=== PATIENT | male | born 1975 | race Caucasian/White ===

== ENCOUNTER 2019-11-07 08:41 | Inpatient (IN) ==
--- OUTSIDE RECORDS SUMMARY | 2019-11-07 08:45 | External Medical Summary | Continuity of Care Document ---
:1975 Author Name Parag Carter Address Unavailable Unavailable , Care Team Providers Name Role Phone NonMNPG M.D. Unavailable [email or web address], [email or web address] Unavailable Unavailable Problems Active medical history not documented Allergies and Adverse Reactions Allergy history not documented Medications Medications not documented Procedures Procedures not documented Immunizations Immunizations not documented Plan of Treatment Planned Observations Planned Goals not documented Results No Known Results Results not documented
[2019-11-07] MEDS ORDERED: SODIUM CHLORIDE 0.9% 1000ML 1,000 ML IV ONE ×2 (08:47→08:53)
[2019-11-07 09:22] LABS: INR 1.3 (0.9-1.1); Partial Thromboplastin Ratio 1.1; Partial Thromboplastin Time 29.6 Seconds (21.0-31.0)
[2019-11-07] MEDS ORDERED: PANTOprazole 80 MG in DEXTROSE 5% 100 ML IV ONE (09:22)
[2019-11-07] MEDS ORDERED: SODIUM CHLORIDE 0.9% 250 ML IV PRN (09:22)
[2019-11-07 09:23] LABS: Base Excess VBG -8.7 mEq/L; HCO3 VBG 16 mmol/L; PCO2 VBG 28 mmHg (38-50); PO2 VBG 36 mmHg; pH VBG 7.37 (7.36-7.41)
[2019-11-07 09:27] LABS: Oxygen Saturation VBG < 60.0 %
[2019-11-07 09:28] LABS: Alanine Aminotransferase 20 U/L (12-78); Albumin Level 1.5 gm/dl (3.4-5.0); Aspartate Aminotransferase 44 U/L (15-37); BUN Creatinine Ratio 14.1 (10-20); Blood Urea Nitrogen 22 mg/dl (7-18); Calcium 7.1 mg/dl (8.5-10.1); Carbon Dioxide 16 mmol/L (21-32); Chloride 106 mmol/L (98-107); Est GFR (African American) 61.8; Est GFR (Non-African American) 53.3; Glucose 83 mg/dl (70-99); Lipase 93 U/L (73-393); Magnesium 1.8 mg/dl (1.8-2.4); Potassium 3.1 mmol/L (3.5-5.1); Sodium 136 mmol/L (136-145)
--- NOTE | 2019-11-07 09:28 | XRay Report ---
XR chest 1V portable CLINICAL HISTORY: SEPSIS COMPARISON STUDY: 01/14/2016 FINDINGS: The cardiac and mediastinal contours are normal. There is no evidence of focal pulmonary co nsolidation. There is no evidence of failure. No pleural effusions are visualized.[A vague left apica l opacity, likely represents a vascular summation. IMPRESSION: No active disease in the chest. ACT 112: Negative or not required by law. Electronically signed by: Romulo Cleary M.D. 11/07/2019 9:26 AM
[2019-11-07 09:30] LABS: Hematocrit (blood only) 23.2 % (42-52); Hemoglobin 7.8 g/dL (14.0-18.0); Mean Corpuscular Hemoglobin 34.2 pg (25-34); Mean Corpuscular Hgb Conc 33.6 g/dL (32-36); Mean Corpuscular Volume 101.8 fL (80-100); Mean Platelet Volume 13.4 fL (7.4-10.4); Nucleated RBC # (auto) 0.06 K/uL (0-0); Nucleated RBC % (auto) 0.5 %; Platelet Count 74 K/uL (130-400); RDW Coefficient of Variation 15.5 % (11.5-14.5); RDW Standard Deviation 56.4 fL (36.4-46.3); Red Blood Count 2.28 M/uL (4.7-6.1); White Blood Count 11.69 K/uL (4.8-10.8)
[2019-11-07 09:31] LABS: Basophils # (auto) 0.02 K/uL (0-0.2); Basophils % (auto) 0.2 %; Immature Granulocytes # (auto) 0.08 K/uL (0.00-0.02); Immature Granulocytes % (auto) 0.7 %; Lymphocytes # (auto) 0.41 K/uL (1.2-3.4); Lymphocytes % (auto) 3.5 %; Monocytes # (auto) 0.95 K/uL (0.11-0.59); Monocytes % (auto) 8.1 %; Neutrophils # (auto) 10.23 K/uL (1.4-6.5); Neutrophils % (auto) 87.5 %; Platelet Estimate Decreased (Normal)
[2019-11-07] MEDS ORDERED: OCTREOTIDE ACETATE 50 MCG in SYRINGE 9.5 ML IV STA (09:31)
[2019-11-07] MEDS ORDERED: SODIUM CHLORIDE 0.9% 1000ML 1,000 ML IV SCH (09:33)
[2019-11-07 09:43] LABS: Albumin Globulin Ratio 0.5 (0.9-2); Alkaline Phosphatase 49 U/L (45-117); Bilirubin,Total 1.6 mg/dl (0.2-1); Creatine Kinase 522 U/L (39-308); Globulin 2.9 gm/dl (2.5-4.0); Total Protein 4.4 gm/dl (6.4-8.2); Troponin I 0.224 ng/ml (0-0.045)
[2019-11-07] MEDS ORDERED: PIPERACILLIN/TAZOBACTAM 4.5 GM/120 ML BAG IV ONE (09:44)
[2019-11-07] MEDS ORDERED: PIPERACILL/TAZOBAC CONSULT ACTIVE PRN (09:44)
--- NOTE | 2019-11-07 09:47 | Emergency Department Note ---
History of Present Illness General Chief complaint: Abdominal Pain Time Seen by Provider: 11/07/19 08:47 History of Present Illness Provider complaint: Vomiting Onset (ago): day(s) 2 Location: abdomen Maximum Pain Intensity: 5 44-year-old male presents emergency department via EMS for nausea and vomiting. Per EMS the patient reports he has been nausea and vomiting for last 2 days. He states he has been unable to keep anything down for the last 2 days. The patient has a history of alcohol abuse. The patient does report he was vomiting blood yesterday. He also reports dark black stools and blood in his urine. Per EMS, the patient is a chronic alcoholic. They state that the patient lives at home in an apartment with 2 other men. They state that the apartment was extremely dirty and unkept littered with mountains of empty beer cans and all cigarette box. Per EMS, the friends reported that the patient drinks half a case of beer a day but has not had any beer in the last 2 days. Patient denies any intravenous drug abuse and denies any history of HIV. Home Medications Home Medications Medication Instructions Recorded Confirmed Type hevbfkr-teirfgitjcitv-hqlrvasq 1 tab PO Q6H PRN 11/07/19 11/07/19 History [Excedrin Extra Strength] ibuprofen [Advil] 400 mg PO Q6H PRN 11/07/19 11/07/19 History Allergies Allergy/AdvReac Type Severity Reaction Status Date / Time Unable to Assess Allergy Unverified 11/07/19 10:11 Past Med/Surg History Medical History Alcohol use disorder Bipolar disorder Cachexia Hypokalemia Severe protein-energy malnutrition Status post admission to intensive care unit Tobacco use disorder Surgical History History of colonoscopy History of esophagogastroduodenoscopy (EGD) Family History Other Diabetes Social History Preferred Language: Spanish Communication Ability: Effective Sheet Cutting Operator Required: No Beliefs That Will Affect Care: None Current Living Situation: Other Current Living Situation Comment: lives in apartment with roommates Feels Safe at Home: Yes Smoking Status: Current every day smoker Tobacco Type: cigarettes ; Cigarettes Per Day: 2-4 packs daily ; Second Hand Exposure: Yes ; Hx Alcohol Use: Yes (15 beers daily ) Alcohol type: beer Alcohol Intake Frequency: Daily Hx Substance Use: Yes Substance Use Type Other:: SNORTED COCAINE IN 2017 Review of Systems A total of 10 systems reviewed and were otherwise negative Physical Exam Vital Signs Vital Signs - 24 hr 11/07/19 08:45 11/07/19 08:47 11/07/19 09:00 Temperature Source Rectal Pulse Rate 103 H 95 H Pulse Rate from SpO2 Sensor 99 H Respiratory Rate 12 31 H Respiratory Effort / Characteristics Non-Labored Respiratory Depth Normal Blood Pressure 78/55 L 76/53 L Blood Pressure Mean 62 56 Blood Pressure Position Lying Pulse Oximetry 99 Oxygen Delivery Method Room Air Room Air Sepsis Recent Fever Within 48 Hours No Sepsis Action Taken by Nursing No Action Required 11/07/19 09:02 11/07/19 09:10 11/07/19 09:15 Temperature Source Pulse Rate 98 H 94 H 96 H Pulse Rate from SpO2 Sensor 99 H Respiratory Rate 29 H 28 H 31 H Respiratory Effort / Characteristics Respiratory Depth Blood Pressure 88/55 L 84/58 L Blood Pressure Mean 58 69 Blood Pressure Position Pulse Oximetry Oxygen Delivery Method Sepsis Recent Fever Within 48 Hours Sepsis Action Taken by Nursing 11/07/19 09:30 11/07/19 09:31 11/07/19 09:45 Temperature Source Pulse Rate 98 H 95 H 91 H Pulse Rate from SpO2 Sensor 93 H Respiratory Rate 31 H 33 H 27 H Respiratory Effort / Characteristics Respiratory Depth Blood Pressure 77/51 L 78/52 L Blood Pressure Mean 59 60 Blood Pressure Position Pulse Oximetry 100 Oxygen Delivery Method Sepsis Recent Fever Within 48 Hours Sepsis Action Taken by Nursing Physical Exam GENERAL: Extremely distressed, cachectic. Ill-appearing. HENT: Exam performed. - Mouth/Throat: Extremely dry mucous membranes. Black coffee ground like material in his mouth. EYES: Conjunctivae and EOM are normal. Pupils are equal, round, and reactive to light. Right eye exhibits no discharge. Left eye exhibits no discharge. No scleral icterus. NECK: Supple CV: Tachycardic rate, regular rhythm, normal heart sounds and intact distal pulses. There is no peripheral edema. Palpable radial pulses bue. PULM/CHEST: Effort normal and breath sounds normal. No respiratory distress. No stridor. He has no wheezes. He has no rales. ABD: The abdomen is soft. Diffuse pain on palpation of the abdomen. No ascites or fluid wave. MUSC/SKEL: Normal range of motion. There is no peripheral edema, tenderness or deformity. Rectal: Hemoccult positive NEURO: He is alert and oriented to person, place, and time. Motor and sensation grossly intact. Procedures Central Line Placement Right Femoral: Time Out Performed: Yes Patient Placed on Monitor/Pulse Ox: Yes MD Prep: mask, gown and gloves Central Line Prep: Chlorhexidine scrub Local Anesthetic: lidocaine 1% Amount of anesthesia used (mL): 3 Central Line Lumen Inserted: triple Post Procedure: sutured in place, good blood return, all ports aspirated, flushed, capped and sterile dressing applied Patient Tolerated Procedure: well Complications: none FAST Exam FAST Exam 1: Fluid in Morison's pouch: No Fluid in Splenorenal Junction: No Fluid around bladder, Transverse view: No Fluid around bladder, Sagittal view: No Fluid in Pericardial Sac: No Gross Wall Motion Abnormality: No Study normal for this patient: Yes Images saved for further review: Yes Additional Comments: Saldivar exam was performed. No pneumothorax bilaterally. No AAA. IVC was plethoric status post 3 L of normal saline bolus. Course Course 0845: The patient was evaluated in room C9. A complete history and physical exam was performed. Patient was placed on gas pipe layer and continuous pulse ox. Patient was found to be tachycardic and hypotensive. Sepsis order set was initiated. 2 L normal saline fluid bolus was ordered. Cardiac monitoring: An order was placed for continuous cardiac monitoring. The monitor shows a rate of 110 with sinus tachycardia rhythm 0947: Patient remains hypotensive status post 2 L normal saline bolus. Nursing staff was unsuccessfully able to pass a Graham catheter on the patient. Patient will be given 3rd L of normal saline. Rectal temperature shows that the patient is hypothermic. Sabine hugger started for the patient. Patient's hemoglobin is low at 7.8. Will start the patient on Protonix given his Hemoccult positive. Given the patient's long history of alcoholism and reported of vomiting blood at home, the patient also be given octreotide bolus and drip for possible esophageal varices. The patient has not had any vomiting or nausea in the emergency department. Patient's lactic acid is elevated above 7. It is unclear if this is due to the patient being septic or due to his profound hypotension from possible GI bleed. 2 units packed red blood cells ordered for the patient. Discussed w/ ICU attending Marisa who is in agreement to bring patient to ICU. Broad-spectrum antibiotics ordered for coverage of possible sepsis. ICU attending states to give 1 unit of packed red blood cells first because if there is concern for esophageal varices not to give too much volume and cause potential a rupture of esophageal varices. 1000: Per charge nurse, will be significant delay in the patient going to the ICU due to nursing staff shortages. Patient remains hypotensive. Bedside saldivar protocol was performed. See procedure note. No free fluid in the abdomen IVC status post approximately 3 L of normal saline does appear plethoric. Central line placed so that the patient can receive vasopressor given his continued hypotension. See procedure note. Potassium replaced in the emergency department. Administered Medications Pantoprazole Sodium 40 mg/ (Dextrose) 100 mls @ 20 mls/hr IV Q5H FLORI Stop: 12/07/19 09:29 Last Admin: 11/07/19 09:51 Dose: 8 mg/hr, 20 mls/hr Documented by: [id number] Octreotide Acetate 500 mcg/ (Sodium Chloride) 105 mls @ 10.5 mls/hr IV .Q10H FLORI Stop: 12/07/19 09:44 Last Admin: 11/07/19 09:50 Dose: 50 mcg/hr, 10.5 mls/hr Documented by: [id number] Norepinephrine Bitartrate 8 mg (/ Dextrose) 508 mls @ 10.211 mls/hr IV .Q24H FLORI; Protocol Stop: 12/07/19 10:59 Last Titration: 11/07/19 12:43 Dose: 0.09 mcg/kg/min, 18.4 mls/hr Documented by: [id number] Titration: 11/07/19 12:10 Dose: 0.07 mcg/kg/min, 14.3 mls/hr Documented by: [id number] Admin: 11/07/19 11:50 Dose: 0.05 mcg/kg/min, 10.2 mls/hr Documented by: [id number] Cosigned by: [id number] Ceftriaxone Sodium 2,000 mg/ (Dextrose) 70 mls @ 140 mls/hr IV TODAY@1400 [facility] Stop: 11/17/19 13:59 Last Admin: 11/07/19 13:59 Dose: 140 mls/hr Documented by: Vancomycin HCl 1,250 mg/ (Sodium Chloride) 275 mls @ 125 mls/hr IV NOW ONE Stop: 11/07/19 14:56 Last Admin: 11/07/19 12:46 Dose: 125 mls/hr Documented by: [id number] Thiamine HCl (Vitamin B-1) 100 mg PO QAM FLORI Stop: 12/07/19 11:59 Last Admin: 11/07/19 14:01 Dose: 100 mg Documented by: Discontinued Medications Gabapentin (Neurontin) 1,200 mg PO TODAY@1200 ONE Stop: 11/07/19 12:01 Last Admin: 11/07/19 13:59 Dose: 1,200 mg Documented by: Sodium Chloride (Nss 1000ml) 1,000 mls @ 999 mls/hr IV .Q1H1M ONE Stop: 11/07/19 09:47 Last Infusion: 11/07/19 10:45 Dose: 0 mls/hr Documented by: [id number] Admin: 11/07/19 09:45 Dose: 999 mls/hr Documented by: [id number] Sodium Chloride (Nss 1000ml) 1,000 mls @ 999 mls/hr IV .Q1H1M ONE Stop: 11/07/19 09:53 Last Infusion: 11/07/19 10:45 Dose: 0 mls/hr Documented by: [id number] Admin: 11/07/19 09:45 Dose: 999 mls/hr Documented by: [id number] Pantoprazole Sodium 80 mg/ (Dextrose) 120 mls @ 400 mls/hr IV NOW ONE Stop: 11/07/19 09:39 Last Infusion: 11/07/19 10:10 Dose: 0 mls/hr Documented by: [id number] Admin: 11/07/19 09:51 Dose: 400 mls/hr Documented by: [id number] Octreotide Acetate 50 mcg/ (Syringe) 10 mls @ 3 mls/min IV ONE STA Stop: 11/07/19 09:34 Last Admin: 11/07/19 09:50 Dose: 3 mls/min Documented by: [id number] Sodium Chloride (Nss 1000ml) 1,000 mls @ 999 mls/hr IV .Q1H1M FLORI Stop: 11/07/19 10:33 Last Infusion: 06/08/20 10:45 Dose: 0 mls/hr Documented by: [id number] Admin: 11/07/19 09:45 Dose: 999 mls/hr Documented by: [id number] Piperacillin Sod/Tazobactam Sod (Zosyn) 4.5 gm in 120 mls @ 30 mls/hr IV NOW ONE Stop: 11/07/19 13:43 Last Infusion: 11/07/19 11:29 Dose: 0 mls/hr Documented by: [id number] Admin: 11/07/19 09:59 Dose: 30 mls/hr Documented by: [id number] Potassium Chloride (K Michael / Wtr) 20 meq in 100 mls @ 50 mls/hr IV ONE ONE Stop: 11/07/19 13:06 Last Admin: 11/07/19 11:29 Dose: 50 mls/hr Documented by: [id number] Multivitamins 10 ml/ Thiamine HCl 100 mg/ Folic Acid 1 mg/Sodium Chloride 1,011.2 mls @ 500 mls/hr IV .Q2H2M ONE Stop: 11/07/19 13:46 Last Admin: 11/07/19 11:50 Dose: 500 mls/hr Documented by: [id number] Miscellaneous () 1 ea N/A NOW STA Stop: 11/07/19 10:54 Last Admin: 11/07/19 11:52 Dose: 1 ea Documented by: [id number] Critical Care Time Critical Care Time: Yes Total Critical Care Time: 140 I have personally spent greater than 140 minutes of critical care time in the direct management of this patient. This includes bedside care, interpretation of diagnostic studies, and testing, discussion with consultants, patient, and family members, and other required patient management activities. This 140 minutes is in excess of all separately billable procedures. Medical Decision Making Laboratory Data Result diagrams: 11/07/19 08:47 11/07/19 08:47 Lab Results 11/07/19 11/07/19 11/07/19 Range/Units 08:47 08:47 08:47 WBC 11.69 H (4.8-10.8) K/uL RBC 2.28 L (4.7-6.1) M/uL Hgb 7.8 L (14.0-18.0) g/dL Hct 23.2 L (42-52) % MCV 101.8 H (80-100) fL MCH 34.2 H (25-34) pg MCHC 33.6 (32-36) g/dL RDW Std Deviation 56.4 H (36.4-46.3) fL RDW Coeff of Santos 15.5 H (11.5-14.5) % Plt Count 74 L (130-400) K/uL MPV 13.4 H (7.4-10.4) fL Immature Gran % (Auto) 0.7 % Neut % (Auto) 87.5 % Lymph % (Auto) 3.5 % [place] % (Auto) 8.1 % Eos % (Auto) 0.0 % Baso % (Auto) 0.2 % Immature Gran # (Auto) 0.08 H (0.00-0.02) K/uL Neut # (Auto) 10.23 H (1.4-6.5) K/uL Lymph # (Auto) 0.41 L (1.2-3.4) K/uL [place] # (Auto) 0.95 H (0.11-0.59) K/uL Eos # (Auto) 0.00 (0-0.5) K/uL Baso # (Auto) 0.02 (0-0.2) K/uL Absolute Nucleated RBC 0.06 H (0-0) K/uL Nucleated RBC % (auto) 0.5 % Platelet Estimate Decreased L (Normal) PT 14.0 H (9.0-12.0) Seconds INR 1.3 H (0.9-1.1) APTT 29.6 (21.0-31.0) Seconds PTT Ratio 1.1 VBG pH (7.36-7.41) VBG pCO2 (38-50) mmHg VBG pO2 mmHg VBG HCO3 mmol/L VBG O2 Saturation % VBG Base Excess mEq/L Barometric Pressure mm/Hg Sodium 136 (136-145) mmol/L Potassium 3.1 L (3.5-5.1) mmol/L Chloride 106 (98-107) mmol/L Carbon Dioxide 16 L (21-32) mmol/L Anion Gap 14.0 H (3-11) BUN 22 H (7-18) mg/dl Creatinine 1.54 H (0.6-1.4) mg/dl Est Cr Clr Drug Dosing Not Reportable Est GFR ( Amer) 61.8 Est GFR (Non-Af Amer) 53.3 BUN/Creatinine Ratio 14.1 (10-20) Glucose 83 (70-99) mg/dl Lactate (0.4-2.0) mmol/L Calcium 7.1 L (8.5-10.1) mg/dl Magnesium 1.8 (1.8-2.4) mg/dl Total Bilirubin 1.6 H (0.2-1) mg/dl AST 44 H (15-37) U/L ALT 20 (12-78) U/L Alkaline Phosphatase 49 (45-117) U/L Ammonia (11-32) umol/L Total Creatine Kinase 522 H (39-308) U/L Troponin I 0.224 H* (0-0.045) ng/ml Total Protein 4.4 L (6.4-8.2) gm/dl Albumin 1.5 L (3.4-5.0) gm/dl Globulin 2.9 (2.5-4.0) gm/dl Albumin/Globulin Ratio 0.5 L (0.9-2) Lipase 93 (73-393) U/L Procalcitonin (0-0.5) ng/ml [place] (0.6-1.2) mmol/L Ethyl Alcohol mg/dL (0-3) mg/dl Blood Type Antibody Screen Crossmatch 11/07/19 11/07/19 11/07/19 Range/Units 08:47 08:47 08:47 WBC (4.8-10.8) K/uL RBC (4.7-6.1) M/uL Hgb (14.0-18.0) g/dL Hct (42-52) % MCV (80-100) fL MCH (25-34) pg MCHC (32-36) g/dL RDW Std Deviation (36.4-46.3) fL RDW Coeff of Santos (11.5-14.5) % Plt Count (130-400) K/uL MPV (7.4-10.4) fL Immature Gran % (Auto) % Neut % (Auto) % Lymph % (Auto) % [place] % (Auto) % Eos % (Auto) % Baso % (Auto) % Immature Gran # (Auto) (0.00-0.02) K/uL Neut # (Auto) (1.4-6.5) K/uL Lymph # (Auto) (1.2-3.4) K/uL [place] # (Auto) (0.11-0.59) K/uL Eos # (Auto) (0-0.5) K/uL Baso # (Auto) (0-0.2) K/uL Absolute Nucleated RBC (0-0) K/uL Nucleated RBC % (auto) % Platelet Estimate (Normal) PT (9.0-12.0) Seconds INR (0.9-1.1) APTT (21.0-31.0) Seconds PTT Ratio VBG pH (7.36-7.41) VBG pCO2 (38-50) mmHg VBG pO2 mmHg VBG HCO3 mmol/L VBG O2 Saturation % VBG Base Excess mEq/L Barometric Pressure mm/Hg Sodium (136-145) mmol/L Potassium (3.5-5.1) mmol/L Chloride (98-107) mmol/L Carbon Dioxide (21-32) mmol/L Anion Gap (3-11) BUN (7-18) mg/dl Creatinine (0.6-1.4) mg/dl Est Cr Clr Drug Dosing Est GFR ( Amer) Est GFR (Non-Af Amer) BUN/Creatinine Ratio (10-20) Glucose (70-99) mg/dl Lactate 7.3 H* (0.4-2.0) mmol/L Calcium (8.5-10.1) mg/dl Magnesium (1.8-2.4) mg/dl Total Bilirubin (0.2-1) mg/dl AST (15-37) U/L ALT (12-78) U/L Alkaline Phosphatase (45-117) U/L Ammonia 12.0 (11-32) umol/L Total Creatine Kinase (39-308) U/L Troponin I (0-0.045) ng/ml Total Protein (6.4-8.2) gm/dl Albumin (3.4-5.0) gm/dl Globulin (2.5-4.0) gm/dl Albumin/Globulin Ratio (0.9-2) Lipase (73-393) U/L Procalcitonin 39.53 H (0-0.5) ng/ml [place] (0.6-1.2) mmol/L Ethyl Alcohol mg/dL (0-3) mg/dl Blood Type Antibody Screen Crossmatch 11/07/19 11/07/19 11/07/19 Range/Units 08:47 09:09 09:09 WBC (4.8-10.8) K/uL RBC (4.7-6.1) M/uL Hgb (14.0-18.0) g/dL Hct (42-52) % MCV (80-100) fL MCH (25-34) pg MCHC (32-36) g/dL RDW Std Deviation (36.4-46.3) fL RDW Coeff of Santos (11.5-14.5) % Plt Count (130-400) K/uL MPV (7.4-10.4) fL Immature Gran % (Auto) % Neut % (Auto) % Lymph % (Auto) % [place] % (Auto) % Eos % (Auto) % Baso % (Auto) % Immature Gran # (Auto) (0.00-0.02) K/uL Neut # (Auto) (1.4-6.5) K/uL Lymph # (Auto) (1.2-3.4) K/uL [place] # (Auto) (0.11-0.59) K/uL Eos # (Auto) (0-0.5) K/uL Baso # (Auto) (0-0.2) K/uL Absolute Nucleated RBC (0-0) K/uL Nucleated RBC % (auto) % Platelet Estimate (Normal) PT (9.0-12.0) Seconds INR (0.9-1.1) APTT (21.0-31.0) Seconds PTT Ratio VBG pH (7.36-7.41) VBG pCO2 (38-50) mmHg VBG pO2 mmHg VBG HCO3 mmol/L VBG O2 Saturation % VBG Base Excess mEq/L Barometric Pressure mm/Hg Sodium (136-145) mmol/L Potassium (3.5-5.1) mmol/L Chloride (98-107) mmol/L Carbon Dioxide (21-32) mmol/L Anion Gap (3-11) BUN (7-18) mg/dl Creatinine (0.6-1.4) mg/dl Est Cr Clr Drug Dosing Est GFR ( Amer) Est GFR (Non-Af Amer) BUN/Creatinine Ratio (10-20) Glucose (70-99) mg/dl Lactate (0.4-2.0) mmol/L Calcium (8.5-10.1) mg/dl Magnesium (1.8-2.4) mg/dl Total Bilirubin (0.2-1) mg/dl AST (15-37) U/L ALT (12-78) U/L Alkaline Phosphatase (45-117) U/L Ammonia (11-32) umol/L Total Creatine Kinase (39-308) U/L Troponin I (0-0.045) ng/ml Total Protein (6.4-8.2) gm/dl Albumin (3.4-5.0) gm/dl Globulin (2.5-4.0) gm/dl Albumin/Globulin Ratio (0.9-2) Lipase (73-393) U/L Procalcitonin (0-0.5) ng/ml [place] < 0.2 L (0.6-1.2) mmol/L Ethyl Alcohol mg/dL < 3.0 (0-3) mg/dl Blood Type A Positive Antibody Screen NEGATIVE Crossmatch See Detail 11/07/19 Range/Units 09:09 WBC (4.8-10.8) K/uL RBC (4.7-6.1) M/uL Hgb (14.0-18.0) g/dL Hct (42-52) % MCV (80-100) fL MCH (25-34) pg MCHC (32-36) g/dL RDW Std Deviation (36.4-46.3) fL RDW Coeff of Santos (11.5-14.5) % Plt Count (130-400) K/uL MPV (7.4-10.4) fL Immature Gran % (Auto) % Neut % (Auto) % Lymph % (Auto) % [place] % (Auto) % Eos % (Auto) % Baso % (Auto) % Immature Gran # (Auto) (0.00-0.02) K/uL Neut # (Auto) (1.4-6.5) K/uL Lymph # (Auto) (1.2-3.4) K/uL [place] # (Auto) (0.11-0.59) K/uL Eos # (Auto) (0-0.5) K/uL Baso # (Auto) (0-0.2) K/uL Absolute Nucleated RBC (0-0) K/uL Nucleated RBC % (auto) % Platelet Estimate (Normal) PT (9.0-12.0) Seconds INR (0.9-1.1) APTT (21.0-31.0) Seconds PTT Ratio VBG pH 7.37 (7.36-7.41) VBG pCO2 28 L (38-50) mmHg VBG pO2 36 mmHg VBG HCO3 16 mmol/L VBG O2 Saturation < 60.0 % VBG Base Excess -8.7 mEq/L Barometric Pressure 734.1 mm/Hg Sodium (136-145) mmol/L Potassium (3.5-5.1) mmol/L Chloride (98-107) mmol/L Carbon Dioxide (21-32) mmol/L Anion Gap (3-11) BUN (7-18) mg/dl Creatinine (0.6-1.4) mg/dl Est Cr Clr Drug Dosing Est GFR ( Amer) Est GFR (Non-Af Amer) BUN/Creatinine Ratio (10-20) Glucose (70-99) mg/dl Lactate (0.4-2.0) mmol/L Calcium (8.5-10.1) mg/dl Magnesium (1.8-2.4) mg/dl Total Bilirubin (0.2-1) mg/dl AST (15-37) U/L ALT (12-78) U/L Alkaline Phosphatase (45-117) U/L Ammonia (11-32) umol/L Total Creatine Kinase (39-308) U/L Troponin I (0-0.045) ng/ml Total Protein (6.4-8.2) gm/dl Albumin (3.4-5.0) gm/dl Globulin (2.5-4.0) gm/dl Albumin/Globulin Ratio (0.9-2) Lipase (73-393) U/L Procalcitonin (0-0.5) ng/ml [place] (0.6-1.2) mmol/L Ethyl Alcohol mg/dL (0-3) mg/dl Blood Type Antibody Screen Crossmatch Imaging Data Radiologist's Impression: XR chest 1V portable CLINICAL HISTORY: SEPSIS COMPARISON STUDY: 01/14/2016 FINDINGS: The cardiac and mediastinal contours are normal. There is no evidence of focal pulmonary consolidation. There is no evidence of failure. No pleural effusions are visualized.[A vague left apical opacity, likely represents a vascular summation. IMPRESSION: No active disease in the chest. ACT 112: Negative or not required by law. Electronically signed by: Romulo Cleary M.D. 11/07/2019 9:26 AM Dictated: 11/07/19920 Transcribed: 11/07/19920 ECG Data Indication: + vomiting Rate (beats per minute): 98 Rhythm: + normal sinus ECG Intervals/blocks: + Normal QRS, + Short NM and + Normal QT-c ECG ST segments: + Normal ST segments Comparison ECG Date: no prior available [facility] Narrative 0845: The patient was evaluated in room C9. A complete history and physical exam was performed. Patient was placed on gas pipe layer and continuous pulse ox. Patient was found to be tachycardic and hypotensive. Sepsis order set was initiated. 2 L normal saline fluid bolus was ordered. Cardiac monitoring: An order was placed for continuous cardiac monitoring. The monitor shows a rate of 110 with sinus tachycardia rhythm 0947: Patient remains hypotensive status post 2 L normal saline bolus. Nursing staff was unsuccessfully able to pass a Graham catheter on the patient. Patient will be given 3rd L of normal saline. Rectal temperature shows that the patient is hypothermic. Sabine hugger started for the patient. Patient's hemoglobin is low at 7.8. Will start the patient on Protonix given his Hemoccult positive. Given the patient's long history of alcoholism and reported of vomiting blood at home, the patient also be given octreotide bolus and drip for possible esophageal varices. The patient has not had any vomiting or nausea in the emergency department. Patient's lactic acid is elevated above 7. It is unclear if this is due to the patient being septic or due to his profound hypotension from possible GI bleed. 2 units packed red blood cells ordered for the patient. Discussed w/ ICU attending Marisa who is in agreement to bring patient to ICU. Broad-spectrum antibiotics ordered for coverage of possible sepsis. ICU attending states to give 1 unit of packed red blood cells first because if there is concern for esophageal varices not to give too much volume and cause potential a rupture of esophageal varices. 1000: Per charge nurse, will be significant delay in the patient going to the ICU due to nursing staff shortages. Patient remains hypotensive. Bedside saldivar protocol was performed. See procedure note. No free fluid in the abdomen IVC status post approximately 3 L of normal saline does appear plethoric. Central line placed so that the patient can receive vasopressor given his continued hypotension. See procedure note. Potassium replaced in the emergency department. Impression & Plan Shock, Acute GI bleeding, Sepsis, Acute hypokalemia Discharge Plan Visit Data *Final* Discharge Date/Time: 11/07/19 11:15 Chief Complaint: Abdominal Pain ED Provider: Keith Hutchinson Discharge Problem: Shock, Acute GI bleeding, Sepsis, Acute hypokalemia Patient Disposition: Admitted As Inpatient Discharge Instructions Interventions: ED Discharge Assessment Last Done: 11/07/19 11:15 Discharge Problem: Sepsis Qualifiers: Sepsis type: sepsis due to unspecified organism Sepsis acute organ dysfunction status: with acute organ dysfunction Severe sepsis acute organ dysfunction type: unspecified Severe sepsis shock status: with septic shock Qualified Code(s): A41.9 - Sepsis, unspecified organism
[2019-11-07] MEDS: OCTREOTIDE ACETATE 500 MCG in 0.9 % SODIUM CHLORIDE 100 ML IV SCH ×2 (09:50→17:04)
[2019-11-07] MEDS: PANTOprazole 40 MG in DEXTROSE 5% 100 ML IV SCH ×3 (09:51→19:20)
--- NOTE | 2019-11-07 10:49 | History & Physical Report ---
Date of Service November 07, 2019 Assessment & Plan (1) Hypovolemic shock: (2) GI bleed: (3) Lactic acid acidosis: (4) Elevated troponin: Patient is a 44-year-old male with a PMH of bipolar disorder, alcohol use disorder and chronic thrombocytopenia who was brought to ED this morning by a friend with complaints of abdominal pain and vomiting blood and was found to be in hypovolemic shock. Initially hypotensive BP 70s/55, HR 100. Leukocytosis of 11.67, hgb of 7.8, hct 23, platelets 74, INR 1.3. Lactic acid elevated at 7.3, procalcitonin of 39.5, troponin 0.224 -Reported hematemesis and at least one episode of melena prior to arrival. Positive FOBT here -Fluid resuscitation with 3 L NSS but remained hypotensive so central line placed and Levophed started. Will be admitted to ICU -Concern for sepsis. Blood cultures pending. Empirically started on Zosyn in ED but will transition to Ceftriaxone to cover for possible SBP given suspected underlying cirrhosis -Keep NPO, PPI bolus and gtt, Octreotide bolus and gtt -GI to continue following and will assess for EGD eval once he's adequately resuscitated -Trend lactic acid and troponin. TSH, cortisol, PSA, HIV, hepatitis panel pending -Will need to obtain UA and urine cultures once crabtree is placed. Urology consulted -Appreciate ICU management (5) Acute blood loss anemia: 2/2 GI bleed. Hgb of 7.8 (baseline 9-10). Consented, type & crossed and now receiving 1u prbcs. Trend H&H (6) Alcohol use disorder: History of recent use- 15 beers daily with occasional liquor. Last drink 2 days ago -Serum etoh <3 today. Alcohol withdrawal protocol ordered (7) Tobacco use disorder: Smokes 2-4 packs daily/ Cessation counseling ordered (8) Bipolar disorder: Not taking any medication currently DVT Ppx: SCDs for now Code status: FULL PCP: Cindy Dispo: Admitted to ICU. Discharge planning ordered. Patient seen in collaboration with Dr. Murrieta. Please see addendum. History of Present Illness Chief Complaint: Abdominal pain, GI bleed Primary Care Provider: Miladys Noriega MD Patient is a 44-year-old male with a PMH of bipolar disorder, alcohol use disorder and chronic thrombocytopenia who was brought to ED this morning by a friend with complaints of abdominal pain and vomiting blood. Per discussion with friend, patient has been endorsing blood in urine for the past 4 months. Reportedly drinks 15 beers daily with occasional liquor use and smokes 2-4 packs of cigarettes daily. Does not take any prescribed medication but takes Advil and Excedrin multiple times per day, per roommates. No reported melena or hematochezia but roommates note a dark red blood clot in toilet this morning. Has not reportedly drank any alcohol for 2 days. Has been having intermittent abdominal pain and difficulty urinating as well as intermittent nausea and vomiting. Denies fever, chills and cough. Per [facility] records, has last seen PCP in 2016. History of EGD in 2016 with gastritis and duodenitis. No documented history of cirrhosis. Noted to be hypotensive BP 70s/55, HR 100. Leukocytosis of 11.67, hgb of 7.8, hct 23, platelets 74, INR 1.3. Lactic acid elevated at 7.3 with procalcitonin of 39.5. CXR unremarkable. Blood cx pending. Is receiving third liter of NSS and ED physician is placing central line for pressors. Started on IV protonix bolus and drip and octreotide. Started empirically on zosyn in ED. GI recommends ceftriaxone for coverage of possible SBP. recommendation. Dr. Davalos aware and patient to be admitted to ICU. Allergies Allergy/AdvReac Type Severity Reaction Status Date / Time No Known Allergies Allergy Verified 11/07/19 15:09 Home Medications Home Medications Medication Instructions Recorded Confirmed Type [id number] 1 tab PO Q6H PRN 11/07/19 11/07/19 History [Excedrin Extra Strength] ibuprofen [Advil] 400 mg PO Q6H PRN 11/07/19 11/07/19 History Past Med/Surg History Medical History Alcohol use disorder Bipolar disorder Cachexia Hypokalemia Severe protein-energy malnutrition Status post admission to intensive care unit Tobacco use disorder Surgical History History of colonoscopy History of esophagogastroduodenoscopy (EGD) Family History Other Diabetes Social History Preferred Language: Faroese Communication Ability: Effective Preform Plate Maker Required: No Beliefs That Will Affect Care: None Current Living Situation: Other Current Living Situation Comment: lives in apartment with roommates Feels Safe at Home: Yes Smoking Status: Current every day smoker Tobacco Type: cigarettes ; Cigarettes Per Day: 2-4 packs daily ; Second Hand Exposure: Yes ; Hx Alcohol Use: Yes (15 beers daily ) Alcohol type: beer Alcohol Intake Frequency: Daily Hx Substance Use: Yes Substance Use Type Other:: SNORTED COCAINE IN 2017 Review of Systems Review of Systems: At least ten systems reviewed and negative except as noted in the HPI. Physical Exam Physical Exam: Please see Dr. Murrieta's addendum for physical exam details. Results & Data Results & Data ([facility]) Vital Signs (Past 12 Hours) Vital Signs Pulse Resp BP Pulse Ox 11/07/19 08:45 103 H 12 78/55 L 99 Laboratory Results Short CBC 11/07/19 Range/Units 08:47 WBC 11.69 H (4.8-10.8) K/uL Hgb 7.8 L (14.0-18.0) g/dL Hct 23.2 L (42-52) % Plt Count 74 L (130-400) K/uL BMP 11/07/19 08:47 Sodium 136 Potassium 3.1 L Chloride 106 Carbon Dioxide 16 L BUN 22 H Creatinine 1.54 H Glucose 83 Calcium 7.1 L Cardiac Enzymes 11/07/19 Range/Units 08:47 Total Creatine Kinase 522 H (39-308) U/L Troponin I 0.224 H* (0-0.045) ng/ml Liver Function 11/07/19 Range/Units 08:47 Total Bilirubin 1.6 H (0.2-1) mg/dl AST 44 H (15-37) U/L ALT 20 (12-78) U/L Alkaline Phosphatase 49 (45-117) U/L Albumin 1.5 L (3.4-5.0) gm/dl Diagnostic Findings CXR: IMPRESSION: No active disease in the chest. Supervising Physician Co-Signing Physician Notes Pt was seen and examined. Agreed with Katherine HAUSER assessment and plan. 44-year-old male with a PMH of bipolar disorder, alcohol use disorder, tobacco use, chronic thrombocytopenia who was brought to ED for abdominal pain and vomiting blood. History obtained from the friend and patient, as per friend pt has been having difficulty to urinate and hematuria in the last few months. Friend said that there was a dark red blood clot in the toilet this morning. Pt takes Advil and excedrin couple times a day for pain. Pt drinks about 15 beers daily. He said that if he does not drink for a day or 2 days that he develops tremors. He had an EGD and a colonoscopy in 2016 which showed antral gastritis, duodenitis and benign adenomatous colon polyps. He has not seen a PCP for sometimes. In the ER was BP 70s/55, HR 100. Leukocytosis of 11.67, hgb of 7.8, hct 23, platelets 74, INR 1.3. Lactic acid elevated at 7.3, procalcitonin of 39.5, troponin 0.224. Denies any chest pain, palpitation, dizziness and fever. Exam General- Cachetic Head- atraumatic Eyes- PERRL, EOMI, ENT- oropharynx clear Neck- supple, no JVD Lungs- clear to auscultation Heart- regular rhythm; no murmur Abdomen- normal bowel sounds, soft, nontender Extremities- no calf tenderness, multiples red spot and old scars on the skin Neuro- alert, oriented, PERRL, EOMI; no facial palsy; no dysarthria Skin- warm & dry, A/P Sepsis shock Present on admission with elevated lactic acid, procalcitonin, Temp 35.3, Tachycardia and Leukocytosis CXR showed no active disease in the chest. Received 3L NS in the ER and continue to be hypotensive Started on pressor with Levophed in the ER Received IV abx with Zosyn in the ER, Will transition to Ceftriaxone and adding Vanco Blood cx and urine cx collected in the ER pending Will monitor in the ICU Case discussed with ICU Building Components Designer Acute Anemia Possible related to hematuria Vs Gi bleed Pt has been taking alot of NSAID Hgb on admission 7.8 Will transfuse 1 unit PRBC GI consult Continue PPI drip and octreotide monitor H./h Check PSA Lab and imaging reviewed Please refer to Katherine HAUSER documentation for other problems MD Glenny
--- NOTE | 2019-11-07 10:50 | Gastrointestinal Consultation ---
Date of Consultation November 07, 2019 Assessment & Plan (1) Hematemesis: Pt is a 44 y/o male, presented to ED w hematemesis. Hx of bipolar, ETOH abuse, fatty liver. He takes NSAIDs on prn basis, hx of gastritis, duodenitis on last EGD in 2015. On eval noted to be hypotensive, tachycardic, H/H 7/23 (baseline hgb 8-10), low plt which seems chronic, mildly elevated INR, lactic acidosis. Blood cx pending. - Agree w transfusion, monitor blood ct. - Keep NPO - PPI bolus and gtt - Octreotide bolus and gtt; Ceftriaxone IV for possible SBP prophylaxis in setting of GI bleeding (suspect possible cirrhosis given low plts and elevated INR in pt w fatty liver) - IVF resuscitation - FU blood cx - Consider Cardiology eval for elevated Troponin - Will follow along. Tenatively will place him for EGD eval tomorrow once he's adequately resuscitated Supervising Physician Co-Signing Physician Notes Late entry: Patient was seen and examined on 11/06 with PHYLLIS Arguello whose note reflects our findings and plan. ETOH and labs suggestive of cirrhosis. Admitted after hematemesis at home. Hypotensive. Being resuscitated. No vomiting or BM in the ER. Hgb drop from baseline of 8-10. Going to receive blood as well. On PPI and octreotide gtt. Will re-eval after resuscitation for EGD tomorrow. Earlier if needed. History of Present Illness Reason for Consultation: Hematemesis Requesting Physician: Dr. Keith Hutchinson Attending Physician: Dr. Daphne Pearson History of Present Illness Pt is a 44 y/o male who was brought to ED this AM by friend after having hematemesis. No more episodes of hematemesis since ED arrival. FOBT positive. He is a poor historian. Told me he hasn't been feeling well for over a week, unable to keep much food/drink down due to n/v. Denies abd pain, melena or BRPBR. He co ntinues to drink about 12 beers a day. + tobacco, denies illicit drugs. Takes NSAIDs prn basis VS, labs reviewed. Noted to be hypotensive BP 70s/55, HR 100. WBC 11, H/H 7.8/23, Plt 74. INR 1.3, BUN/Cr 23/1.5. INR 1.3. Lactic acid 7. Troponin elevated. CXR unremarkable. Blood cx pending. Fatty liver on previous liver imaging. Baseline Hgb between 8-10. Has chronic thrombocytopenia Last EGD/Colonoscopy in 2016 - antral gastritis, duodenitis, benign adenomatous colon polyps Allergies Allergy/AdvReac Type Severity Reaction Status Date / Time No Known Allergies Allergy Verified 11/07/19 15:09 Home Medications Home Medications Medication Instructions Recorded Confirmed Type [id number] 1 tab PO Q6H PRN 11/07/19 11/07/19 History [Excedrin Extra Strength] ibuprofen [Advil] 400 mg PO Q6H PRN 11/07/19 11/07/19 History Patient History Medical History Alcohol use disorder Bipolar disorder Cachexia Hypokalemia Severe protein-energy malnutrition Status post admission to intensive care unit Tobacco use disorder Surgical History History of colonoscopy History of esophagogastroduodenoscopy (EGD) Family History Other Diabetes Social History Preferred Language: Micronesian Communication Ability: Effective Ammunition Specialist Required: No Beliefs That Will Affect Care: None Current Living Situation: Other Current Living Situation Comment: lives in apartment with roommates Feels Safe at Home: Yes Smoking Status: Current every day smoker Tobacco Type: cigarettes ; Cigarettes Per Day: 2-4 packs daily ; Second Hand Exposure: Yes ; Hx Alcohol Use: Yes (15 beers daily ) Alcohol type: beer Alcohol Intake Frequency: Daily Hx Substance Use: Yes Substance Use Type Other:: SNORTED COCAINE IN 2017 Review of Systems Review of Systems: All systems reviewed & are unremarkable except as noted in HPI & below Physical Exam Constitutional: + ill appearing and + thin Eyes: PERRL, conjunctivae normal, anicteric sclerae ENMT: external ear and nose normal, oropharynx normal Respiratory: Auscultation: + diminished lung sounds Cardiovascular: RRR, no murmur, no edema Gastrointestinal (Abdomen): Inspection/Auscultation: + hypoactive bowel sounds Percussion/Palpation: + abdomen tender (epigastric ) and abdomen soft Skin: + pallor; no jaundice Psychiatric: A+Ox3, euthymic affect Lymphatic: no lymphedema Results & Data ([facility]) Vital Signs (Past 12 Hours) Vital Signs Pulse Resp BP Pulse Ox 11/07/19 08:45 103 H 12 78/55 L 99
[2019-11-07] MEDS ORDERED: STAT IV Infusion **Titration per Protocol STA ×2 (10:53→22:40)
[2019-11-07] MEDS ORDERED: POTASSIUM CHLORIDE / WTR 20 MEQ/100 ML PLCT IV ONE (11:07)
[2019-11-07] MEDS ORDERED: ICU PROTOCOL FOR HYPERGLYCEMIA PRN (11:26)
[2019-11-07] MEDS ORDERED: LORazepam 1 MG TAB PO PRN (11:26)
[2019-11-07] MEDS ORDERED: GABAPENTIN 1200MG ALCOHOL WITHDRAWAL LOAD PO STA (11:26)
[2019-11-07] MEDS ORDERED: MULTI-VITAMIN INFUSION 10 ML, THIAMINE HCL 100 MG, FOLIC ACID 1 MG in SODIUM CHLORIDE 0... IV ONE (11:45)
[2019-11-07] MEDS: NOREPINEPHRINE BIT INJ 8 MG in DEXTROSE 5% 500 ML IV SCH (11:50)
[2019-11-07] MEDS ORDERED: GABAPENTIN 600 MG TAB PO ONE (12:00)
[2019-11-07] MEDS ORDERED: VANCOMYCIN CONSULT ACTIVE PRN (12:06)
[2019-11-07] MEDS ORDERED: VANCOMYCIN HCL 1,250 MG in SODIUM CHLORIDE 0.9% 250 ML IV ONE (12:45)
--- NOTE | 2019-11-07 12:46 | Critical Care Consultation ---
Date of Consultation November 07, 2019 Assessment & Plan (1) Status post admission to intensive care unit: 44-year-old male with a long history of alcohol abuse, cachexia, chronic anemia and thrombocytopenia presented to the hospital with hypovolemic/hemorrhagic shock and possible septic component. This patient was discussed on multidisciplinary rounds. I personally evaluated and examined this patient and I agree with the assessment and plan of [] aside for any additions/exceptions noted below: Neurologic: Continue banana bag to prevent Warnicke's encephalopathy Delirium precautions Pulmonary: Minimal oxygen requirements currently. Needs to abstain from smoking cigarettes. Cardiovascular: He is currently hypotensive. Will maintain maps above 65 with the aid of pressors. We will bolus isotonic fluids and albumin on an as-needed basis. He is receiving 1 unit of blood. After that is completed we will reassess and likely give him another unit of blood. Troponin is mildly elevated likely due to to demand ischemia. We will obtain a follow-up troponin. He has a right femoral central line in place. His blood pressures appear to be improving mildly on norepinephrine and on fluids. Will avoid arterial line for now. We will readdress this. Gastrointestinal: Possible upper GI bleed with numerous etiologies including possible varices, gastritis, peptic ulcer disease or malignancy. GI is following and will plan for an EGD tomorrow. Continue PPI drip and octreotide drip. Will obtain a CT of his abdomen to evaluate for further pathology. Renal: Unclear what his baseline is. Continue hydration as we are doing. I expect that this will improve. He needs a Graham to be placed given his history of hematuria. Will consult urology. CKs elevated. Will obtain a follow-up CK to make sure that this is plateaued or trending downward. Trend lactate. Infectious disease: MRSA screen pending. Procalcitonin elevated possibly related to infection or underlying acute kidney injury. We will trend this and repeat in 48 hours. We will give him a dose of vancomycin and await his MRSA screen. Continue ceftriaxone for prophylaxis in light of his possible upper GI bleed. Blood cultures pending. He will need a urinalysis and cultures once a Graham is placed . Hepatitis panel and HIV panel pending. He did give us verbal consent for the HIV panel. Hematologic: Monitor hemoglobin every 6 hours. Transfuse to maintain hemoglobin above 7 or if he has a significant episode of hematemesis. Platelet count is low but appears adequate currently. No significant coagulopathy seen. We will try not to overload him with blood especially in light of a possible variceal bleed. Endocrine: We will obtain TSH and a random cortisol level. F/E/N: N.p.o. for now. Continue replacement of potassium. Magnesium 1.8. Check phosphorus. Fluids as above. Lines and tubes: Right femoral line in place. Peripheral IVs in place as well. VTE prophylaxis: SCDs for prophylaxis. CODE STATUS: Full. Family at bedside: None available. Disposition: Remain in the ICU today. Patient discussed with the bedside RN and the patient's primary team. I have personally spent 57 minutes of critical care time in the direct management of this patient. This is a life/limb threatening event. This includes time spent evaluating patient, direct bedside care, chart review, placing orders, interpretation of diagnostic studies, discussion with consultants, patient, and family members, as well as other required patient management activities. This time is exclusive of all separately billable procedures, and teaching time and separate from and in addition to any other critical care service time. Thank you for allowing us to participate in the care of this patient. (2) Lactic acid acidosis: (3) Elevated troponin: (4) Hypovolemic shock: (5) GI bleed: (6) Alcohol use disorder: (7) Hematemesis: (8) Hypokalemia: (9) Severe protein-energy malnutrition: (10) Cachexia: History of Present Illness Reason for Consultation: Hypovolemic/hemorrhagic shock Requesting Physician: Emergency department physician Attending Physician: Fredi Murrieta MD History of Present Illness 44-year-old male with a past medical history of drug abuse, bipolar disorder, tobacco abuse, alcohol abuse, cachexia who presented to the hospital due to hematemesis. He was brought in by a friend. His fecal occult was found positive for blood. He notes that he has been feeling unwell since June and had some trouble urinating in July with some blood clots. He also notes ongoing nausea and vomiting. He thinks he lost at least 10 pounds of weight s maria luz the past month. He probably lost more weight since June. He drinks about 12 beers a day. He does endorse a history of some mild alcohol withdrawal symptoms, but denies any seizures. He lives with a friend. He is unemployed. He notes some abdominal pain when eating. He occasionally has cramping when having bowel movements. Denies any high risk sexual encounters. Denies any IV drug use. He did snort drugs in 2017. He is okay with us testing for HIV and hepatitis. In the ER he was ordered 2 L of blood. He is getting his first unit of blood. He is received roughly 2 L of fluid. He has a banana bag going as well. He received a dose of Zosyn. This is been switched over to Rocephin. Hemoglobin found to be 7.8. Platelets are down to 74. INR mildly elevated to 1.3. Lact ate was around 7 and is now downtrending to the fours. GI has evaluated patient and noted baseline hemoglobin of 8-10 with chronic thrombocytopenia. He had an EGD and a colonoscopy in 2015 which showed antral gastritis, duodenitis and benign adenomatous colon polyps. They recommended continuing the octreotide drip and the PPI bolus and drip. They are tentatively scheduling him for an EGD tomorrow. His chest x-ray was clear. MRSA screen is pending. Procalcitonin was elevated 39. Creatinine is 1.54. I am uncertain what his baseline is. Ammonia is 12. Albumin 1.5. Allergies Allergy/AdvReac Type Severity Reaction Status Date / Time Unable to Assess Allergy Unverified 11/07/19 10:11 Home Medications Home Medications Medication Instructions Recorded Confirmed Type [id number]-[id number] 1 tab PO Q6H PRN 11/07/19 11/07/19 History [Excedrin Extra Strength] ibuprofen [Advil] 400 mg PO Q6H PRN 11/07/19 11/07/19 History Patient History Medical History Alcohol use disorder Bipolar disorder Tobacco use disorder Surgical History History of colonoscopy History of esophagogastroduodenoscopy (EGD) Family History Other Diabetes Social History Current Living Situation: Other Current Living Situation Comment: lives in apartment with roommates Smoking Status: Current every day smoker Cigarettes Per Day: 2-4 packs daily ; Hx Alcohol Use: Yes (15 beers daily ) Alcohol type: beer Alcohol Intake Frequency: Daily Review of Systems Review of Systems: All systems reviewed & are unremarkable except as noted in HPI & below Physical Exam Constitutional: Cachectic appearing. Disheveled. Numerous wounds and ulcerations noted throughout his body. His feet are very dirty. He does not appear to be in any significant distress currently. Saturating 100% on room air. Eyes: PERRL, conjunctivae normal, anicteric sclerae Eyes appear sunken in. By temporal wasting noted. ENMT: external ear and nose normal, oropharynx normal Neck: normal visual inspection Respiratory: normal respiratory effort, lungs clear to auscultation Cardiovascular: RRR, no murmur, no edema Gastrointestinal (Abdomen): Mild tenderness to palpation. Bowel sounds present. Musculoskeletal: Head/Neck/Chest: normocephalic and neck supple Able to move all limbs spontaneously. Strength appears to be mildly diminished throughout all extremities. Skin: Numerous wounds and scars noted in his legs and arms. Numerous tattoos. Neurologic: PERRL, EOMI, accommodation nl, no face palsy, no dysarthria Psychiatric: A+Ox3, euthymic affect Results & Data Results & Data ([facility]) Vital Signs (Past 12 Hours) Vital Signs Temp Pulse Resp BP Pulse Ox 11/07/19 12:01 96.3 F L 83 22 69/52 L 100 11/07/19 11:03 95.5 F L 11/07/19 11:00 79 10 L 100 11/07/19 10:45 82 19 72/53 L 100 11/07/19 10:31 81 15 100 11/07/19 10:30 80 27 H 79/49 L 100 11/07/19 10:15 84 21 76/56 L 100 11/07/19 10:09 88 27 H 76/53 L 100 11/07/19 10:00 86 23 76/52 L 100 11/07/19 09:45 91 H 27 H 78/52 L 100 11/07/19 09:31 95 H 33 H 11/07/19 09:30 98 H 31 H 77/51 L 11/07/19 09:15 96 H 31 H 84/58 L 11/07/19 09:10 94 H 28 H 88/55 L 11/07/19 09:02 98 H 29 H 11/07/19 09:00 95 H 31 H 76/53 L 11/07/19 08:45 103 H 12 78/55 L 99 I personally reviewed his labs, chest imaging and previous notes as noted above. Additionally, he is hypokalemic and receiving replacement currently. His creatinine kinase is also elevated at 522. Coding Level of Care Code Critical Care 1st 30-74 mins Diagnoses Status post admission to intensive care unit Lactic acid acidosis E87.2 Elevated troponin R79.89 Hypovolemic shock R57.1 GI bleed K92.2 Alcohol use disorder Hematemesis K92.0 Hypokalemia E87.6 Severe protein-energy malnutrition E43 Cachexia R64 Time Spent (min) 57
[2019-11-07 13:32] LABS: Prostate Specific Antigen 1.7 ng/ml (0-4); Thyroid Stimulating Hormone 3.54 uIu/ml (0.300-4.500)
[2019-11-07 13:38] LABS: Hepatitis B Surface Antigen Neg (Neg)
[2019-11-07] MEDS ORDERED: cefTRIAXone SODIUM 2,000 MG in DEXTROSE 5% 50 ML IV SCH (14:00)
[2019-11-07] MEDS: THIAMINE HCL 100 MG TAB PO SCH (14:01)
[2019-11-07 14:07] LABS: Hepatitis C IgG 13Yrs+Old_Rflx Neg (Neg)
--- NOTE | 2019-11-07 14:43 | Urology Consultation ---
Date of Consultation November 07, 2019 Assessment & Plan (1) Acute blood loss anemia: (2) Hypovolemic shock: (3) Sepsis: (4) Shock: (5) Hematuria, gross: (6) Acute urinary retention: A 16 Frisian catheter was placed after dilation of meatal stenosis/stricture. Patient likely has stricture versus false passage in the bulbar urethral region. A catheter was able be placed with a dark yellow/brown urine received likely indicative of the patient's liver disease. No significant hematuria was appreciated. Blood at meatus was likely from traumatic catheterization/stricture disease. Discussed issues related to urinary problems and concerns. Discussed patient's family history. Patient's very complicated medical and surgical history was reviewed and summarized above. As patient is critically ill and undergoing active management a catheter will was placed in an urgent fashion. Patient tolerated the procedure well. Patient had been prepped and draped in usual sterile fashion. No major issues or problems. Patient was agreeable to having catheter placed. Patient to maintain catheter for likely 5 to 7 days. Will likely need cystoscopy at some point to assess for possible stricture disease or other problems. We will be available for any further issues. Agree with plans for continued supportive care and close monitoring and management. History of Present Illness Attending Physician: Fredi Murrieta MD History of Present Illness Consult for urinary issues with incomplete emptying and possible retention. Patient is admitted in the ICU with acute blood loss anemia from a significant GI bleed with hypotension and shock. Patient has severe chronic medical issues. Has significant alcohol abuse/addiction with multiple comorbidities. A valentin ter was attempted to be placed in the ER and was unable to be passed. Blood was seen at the meatus. Patient has complained of considerable trouble voiding for the last few months. Patient has mild to moderate discomfort in pelvis and groin going to back and side in waves. Is dealing with acute illness. Has been deconditioned from this. Has decreased mobility significantly with acute issues. Patient has not had complete return to normal bowel function. Has had some minor urinary issues in the past. Prior to today patient denies bleeding. Is admitted in the ICU for critical management and close care. Is actively undergoing transfusion. Patient has family history of prostate related issues. In the years prior to this he denied major urinary problems or complaints. Has only developed symptoms in the last few months. Allergies Allergy/AdvReac Type Severity Reaction Status Date / Time Unable to Assess Allergy Unverified 11/07/19 10:11 Home Medications Home Medications Medication Instructions Recorded Confirmed Type xzcnquh-[id number]-khbtmqkj 1 tab PO Q6H PRN 11/07/19 11/07/19 History [Excedrin Extra Strength] ibuprofen [Advil] 400 mg PO Q6H PRN 11/07/19 11/07/19 History Patient History Medical History Alcohol use disorder Bipolar disorder Cachexia Hypokalemia Severe protein-energy malnutrition Status post admission to intensive care unit Tobacco use disorder Surgical History History of colonoscopy History of esophagogastroduodenoscopy (EGD) Family History Other Diabetes Social History Preferred Language: Korean 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 Beliefs That Will Affect Care: None Current Living Situation: Other Current Living Situation Comment: lives in apartment with roommates Feels Safe at Home: Yes Smoking Status: Current every day smoker Tobacco Type: cigarettes ; Cigarettes Per Day: 2-4 packs daily ; Second Hand Exposure: Yes ; Hx Alcohol Use: Yes (15 beers daily ) Alcohol type: beer Alcohol Intake Frequency: Daily Hx Substance Use: Yes Substance Use Type Other:: SNORTED COCAINE IN 2017 Review of Systems Review of Systems: All systems reviewed & are unremarkable except as noted in HPI & below Physical Exam Physical Exam: General: Alert and oriented x 3 in critical condition. Cachectic with distention/ascites. HEENT: Normocephalic Atraumatic. Inspection normal. Cranial Nerves 2-12 Grossly intact. Nares are clear. Neck is supple. Normal inspection of face. Normal inspection of neck. Neurologic: No deficits on inspection. Baseline for motor function and sensory. Psychologic: Normal affect. Respiratory: Nonlabored. No use of accessory muscles. No tachypnea or dyspnea. Cardiovascular: No current tachycardia Skin: Pale. Bruising and lesions in groin and trunk. Extremities: Moving without issues. No motor deficits on inspection Lymphatics: No edema Abdomen: Moderately distended. acites. No rebound or guarding. : Mild blood at meatus. Significant meatal stricture which was dilated. A 16 Frisian Graham catheter was able to be passed. Appears to be a strictured and/or false passage area in the bulbar urethra region however this was able to be bypassed. Dark yellow/brown urine was received Results & Data Vital Signs (Past 12 Hours) Vital Signs Temp Pulse Pulse Resp BP BP Pulse Ox 11/07/19 14:04 35.7 C L 18 87/66 L 100 11/07/19 13:04 35.7 C L 65 18 84/64 L 97 11/07/19 12:34 35.7 C L 73 22 78/50 L 99 11/07/19 12:19 35.8 C L 74 23 66/42 L 95 11/07/19 12:01 35.7 C L 83 22 69/52 L 100 11/07/19 11:32 35.7 C L 82 21 62/41 L 100 11/07/19 11:03 35.3 C L 11/07/19 11:00 79 10 L 100 11/07/19 10:45 82 19 72/53 L 100 11/07/19 10:31 81 15 100 11/07/19 10:30 80 27 H 79/49 L 100 11/07/19 10:15 84 21 76/56 L 100 11/07/19 10:09 88 27 H 76/53 L 100 11/07/19 10:00 86 23 76/52 L 100 11/07/19 09:45 91 H 27 H 78/52 L 100 11/07/19 09:31 95 H 33 H 11/07/19 09:30 98 H 31 H 77/51 L 11/07/19 09:15 96 H 31 H 84/58 L 11/07/19 09:10 94 H 28 H 88/55 L 11/07/19 09:02 98 H 29 H 11/07/19 09:00 95 H 31 H 76/53 L 11/07/19 08:45 103 H 12 78/55 L 99 PG Care Time/CCT Total # of Minutes Spent Total Time Spent with Patient: Total time spent is greater than 50% in coordination of care (as documented) at patient's floor/unit and/or counseling patient: Coding Level of Care Code 35485 Inpt Consult Level 5 Diagnoses Acute blood loss anemia D62 Hypovolemic shock R57.1 Sepsis A41.9; R65.21 Sepsis acute organ dysfunction status: with acute organ dysfunction Sepsis type: sepsis due to unspecified organism Severe sepsis acute organ dysfunction type: unspecified Severe sepsis shock status: with septic shock Shock R57.9 Hematuria, gross R31.0 Acute urinary retention R33.8 (1) Sepsis Sepsis acute organ dysfunction status: with acute organ dysfunction Sepsis type: sepsis due to unspecified organism Severe sepsis acute organ dysfunction type: unspecified Severe sepsis shock status: with septic shock Qualified Code(s): A41.9 - Sepsis, unspecified organism; R65.21 - Severe sepsis with septic shock
[2019-11-07 14:45] LABS: Appearance Urine Cloudy (Clear); Bacteria Urine Automated 1+ (Negative); Blood Urine 3+ (Negative); Color Urine Orange; Glucose Urine UA Negative (Negative); Ketones Urine Trace (Negative); Leukocyte Esterase Urine 3+ (Negative); Nitrite Urine Positive (Negative); Protein Urine 1+ (Negative); RBC Urine Automated >30 /hpf (0-4); Specific Gravity Urine 1.015 (1.000-1.030); Urobilinogen Urine Negative (Negative); WBC Urine Automated >30 /hpf (0-5)
[2019-11-07 14:59] LABS: Bilirubin Urine Negative (Negative); Ictotest Urine Negative (Negative)
--- NOTE | 2019-11-07 15:00 | Pharmacy Report ---
Pharmacy Abx Dose Short Note - Date of Service November 07, 2019 - Assessment & Plan Assessment 44 year old M receiving vancomycin empirically for 48 hours. Also receiving ceftriaxone. Day # 1 of antimicrobial therapy. Plan Vancomycin * Loading dose 1250mg X1 @ ~1245pm then * Maintenance dose of 750 mg IV every 12 hours starting 11/07 @0100 * Goal trough level : 15 to 20 mcg/mL * Trough or random level ordered for: will order if plans to continue past 48 hours or as clinically warranted Pharmacy will continue to follow and will adjust dose/frequency as necessary. Thank you.
[2019-11-07 15:16] LABS: Phosphorus 2.7 mg/dl (2.5-4.9)
[2019-11-07 15:42] LABS: Amphetamines+Metham, Urine Neg (Neg); Barbiturates, Urine Neg (Neg); Benzodiazepine, Urine Neg (Neg); Cocaine, Urine Neg (Neg); MDMA (Ecstacy), Urine Neg (Neg); Methadone, Urine Neg (Neg); Opiate, Urine Neg (Neg); Phencyclidine, Urine Neg (Neg)
[2019-11-07 18:20] LABS: Hematocrit (blood only) 31.3 % (42-52); Hemoglobin 10.7 g/dL (14.0-18.0)
[2019-11-07] MEDS: GABAPENTIN 600 MG TAB PO SCH ×2 (19:18→23:39)
[2019-11-07] MEDS ORDERED: ALBUMIN 5% 500 ML IV ONE (19:19)
[2019-11-07] MEDS ORDERED: NORMOSOL-R 1,000 ML IV SCH (19:30)
[2019-11-07] MEDS ORDERED: NORMOSOL-R 500 ML IV ONE (22:20)
--- NOTE | 2019-11-07 22:47 | Electrocardiogram Report ---
Test Reason : Blood Pressure : / mmHG Vent. Rate : 098 BPM Atrial Rate : 098 BPM P-R Int : 092 ms QRS Dur : 082 ms QT Int : 374 ms P-R-T Axes : 032 073 075 degrees QTc Int : 477 ms Sinus rhythm with short SC Septal infarct , age undetermined Nonspecific ST and T wave abnormality Abnormal ECG When compared with ECG of 15-JAN-2016 06:48, Nonspecific T wave abnormality now evident in Anterolateral leads Confirmed by Eb Jackson ([id number]) on 11/07/2019 10:46:51 PM Referred By: REFERRED SELF Confirmed By:Eb Jackson
[2019-11-07] MEDS: VASOPRESSIN 20 UNITS in 0.9 % SODIUM CHLORIDE 100 ML IV SCH (23:11)
[2019-11-08 00:36] LABS: Hematocrit (blood only) 29.4 % (42-52); Hemoglobin 10.2 g/dL (14.0-18.0)
[2019-11-08] MEDS ORDERED: VANCOMYCIN HCL 750 MG in SODIUM CHLORIDE 0.9% 250 ML IV SCH (01:00)
[2019-11-08] MEDS: PANTOprazole 40 MG in DEXTROSE 5% 100 ML IV SCH ×6 (01:44→21:41)
[2019-11-08] MEDS: OCTREOTIDE ACETATE 500 MCG in 0.9 % SODIUM CHLORIDE 100 ML IV SCH ×2 (04:36→16:39)
[2019-11-08 05:17] LABS: Mean Corpuscular Hgb Conc 34.7 g/dL (32-36); Nucleated RBC # (auto) 0.04 K/uL (0-0); Nucleated RBC % (auto) 0.3 %
[2019-11-08 05:35] LABS: Hematocrit (blood only) 29.1 % (42-52); Hemoglobin 10.1 g/dL (14.0-18.0); Mean Corpuscular Hemoglobin 33.3 pg (25-34); RDW Coefficient of Variation 19.8 % (11.5-14.5); RDW Standard Deviation 68.5 fL (36.4-46.3); Red Blood Count 3.03 M/uL (4.7-6.1); White Blood Count 16.96 K/uL (4.8-10.8)
[2019-11-08 05:40] LABS: Platelet Count 86 K/uL (130-400)
[2019-11-08 05:41] LABS: Platelet Estimate Decreased (Normal)
[2019-11-08 05:44] LABS: INR 1.3 (0.9-1.1); Partial Thromboplastin Ratio 1.4; Partial Thromboplastin Time 39.6 Seconds (21.0-31.0); Prothrombin Time 13.6 Seconds (9.0-12.0)
[2019-11-08 06:24] LABS: Albumin Globulin Ratio 0.9 (0.9-2); Albumin Level 2.1 gm/dl (3.4-5.0); BUN Creatinine Ratio 21.3 (10-20); Bilirubin,Total 2.3 mg/dl (0.2-1); Calcium 6.6 mg/dl (8.5-10.1); Creatinine Clr Calc Pharmacy 81.2 ml/min; Est GFR (African American) 108.1; Est GFR (Non-African American) 93.2; Globulin 2.4 gm/dl (2.5-4.0); Magnesium 1.8 mg/dl (1.8-2.4); Phosphorus 2.5 mg/dl (2.5-4.9); Potassium 3.6 mmol/L (3.5-5.1); Total Protein 4.5 gm/dl (6.4-8.2)
[2019-11-08] MEDS: VASOPRESSIN 20 UNITS in 0.9 % SODIUM CHLORIDE 100 ML IV SCH ×2 (06:32→14:39)
[2019-11-08] MEDS: NOREPINEPHRINE BIT INJ 8 MG in DEXTROSE 5% 500 ML IV SCH ×2 (06:32→14:39)
--- NOTE | 2019-11-08 06:40 | Electrocardiogram Report ---
Test Reason : Blood Pressure : / mmHG Vent. Rate : 080 BPM Atrial Rate : 080 BPM P-R Int : 162 ms QRS Dur : 082 ms QT Int : 412 ms P-R-T Axes : 218 074 072 degrees QTc Int : 475 ms Unusual P axis, possible ectopic atrial rhythm Possible Septal infarct (cited on or before 07-NOV-2019) T wave abnormality, consider anterior ischemia Abnormal ECG When compared with ECG of 07-NOV-2019 08:48, Ectopic atrial rhythm has replaced Sinus rhythm T wave inversion now evident in Anterior leads Confirmed by Eb Jackson ([id number]) on 11/08/2019 6:40:08 AM Referred By: REFERRED SELF Confirmed By:Eb Jackson
[2019-11-08] MEDS ORDERED: MAGNESIUM SULFATE / D5W 1 GM/100 ML BAG IV ONE (06:56)
[2019-11-08] MEDS ORDERED: POTASSIUM CHLORIDE / WTR 20 MEQ/100 ML PLCT IV ONE (07:30)
[2019-11-08] MEDS ORDERED: ALBUMIN 5% 250 ML IV STA ×2 (07:48→09:47)
--- NOTE | 2019-11-08 07:51 | Critical Care Progress Note ---
Date of Service November 08, 2019 Assessment & Plan (1) Status post admission to intensive care unit: 44-year-old male with a long history of alcohol abuse, cachexia, chronic anemia and thrombocytopenia presented to the hospital with hypovolemic/hemorrhagic shock and possible septic component. This patient was discussed on multidisciplinary rounds. I personally evaluated and examined this patient and I agree with the assessment and plan of [] aside for any additions/exceptions noted below: Neurologic: Continue banana bag to prevent Warnicke's encephalopathy Delirium precautions Pulmonary: Minimal oxygen requirements currently. Needs to abstain from smoking cigarettes. Cardiovascular: He continues to remain hypotensive. Hemoglobin is stable. Continue pressor support to maintain her mean arterial pressure above 65. We will give him another dose of 500 cc of albumin. Troponins have peaked. Likely related to demand ischemia. Gastrointestinal: Possible upper GI bleed with numerous etiologies including possible varices, gastritis, peptic ulcer disease or malignancy. He is a very heavy drinker and a have underlying cirrhosis. GI is following the patient. Hemoglobin has been stable. Continue PPI drip and octreotide drip for now. Will obtain a CT of his abdomen to evaluate for further pathology today. Renal: Creatinine has improved. Lactate is also improved. Graham is in place. Appreciate urology's input. We will leave the Graham in 5 to 7 days. Infectious disease: MRSA screen was negative. HIV panel negative. Hepatitis panel pending. Continue ceftriaxone for septic shock secondary to complicated UTI. Hematologic: He has not required a transfusion of blood since yesterday. He is status post 2 units of packed RBCs yesterday. He continues to be mildly anemic and thrombocytopenic. Question the possibility of cirrhosis. Endocrine: TSH normal. Cortisol was elevated. F/E/N: N.p.o. for now. Fluid boluses PRN. Lines and tubes: Right femoral line in place. Peripheral IVs in place as well. VTE prophylaxis: SCDs for prophylaxis. CODE STATUS: Full. Family at bedside: None available. Disposition: Remain in the ICU today. Patient discussed with the bedside RN and the patient's primary team. I have personally spent 40 minutes of critical care time in the direct management of this patient. This is a life/limb threatening event. This includes time spent evaluating patient, direct bedside care, chart review, placing orders, interpretation of diagnostic studies, discussion with consultants, patient, and family members, as well as other required patient management activities. This time is exclusive of all separately billable procedures, and teaching time and separate from and in addition to any other critical care service time. Thank you for allowing us to participate in the care of this patient. (2) Lactic acid acidosis: (3) Elevated troponin: (4) Hypovolemic shock: (5) GI bleed: (6) Alcohol use disorder: (7) Hematemesis: (8) Hypokalemia: (9) Severe protein-energy malnutrition: (10) Cachexia: Admission and Anticipated Discharge Date Admission Date: November 07, 2019 Subjective Patient seen and examined this morning. Complaining of some pain in his ankles. Also has pain in his belly on palpation. No significant events overnight. Still continues on a low-dose of Levophed. Vasopressin was added as well. Physical Exam Eyes: PERRL, conjunctivae normal, anicteric sclerae ENMT: external ear and nose normal, oropharynx normal Neck: normal visual inspection Respiratory: normal respiratory effort, lungs clear to auscultation Cardiovascular: RRR, no murmur, no edema Gastrointestinal (Abdomen): Inspection/Auscultation: abdomen normal to inspection Percussion/Palpation: + abdomen tender; no guarding and abdomen not rigid Musculoskeletal: Head/Neck/Chest: normocephalic and neck supple Neurologic: PERRL, EOMI, accommodation nl, no face palsy, no dysarthria Psychiatric: A+Ox3, euthymic affect Results & Data Results & Data ([facility]) Vital Signs (Past 12 Hours) Vital Signs Temp Pulse Resp BP Pulse Ox 11/08/19 06:00 68 21 94 11/08/19 05:37 68 22 96/66 L 95 11/08/19 05:30 73 21 97 11/08/19 05:08 67 18 104/62 96 11/08/19 05:00 65 20 96 11/08/19 04:44 53 L 22 129/86 97 11/08/19 04:43 50 L 21 98 11/08/19 04:40 68 20 89/64 L 96 11/08/19 04:37 69 22 88/63 L 95 11/08/19 04:30 67 22 97 11/08/19 04:07 68 21 97/73 L 95 11/08/19 04:00 97.3 F L 67 16 92 11/08/19 03:37 67 18 102/72 96 11/08/19 03:30 65 20 97 11/08/19 03:07 65 20 105/77 97 11/08/19 03:00 65 20 96 11/08/19 02:54 68 16 106/73 95 11/08/19 02:30 64 18 96 11/08/19 02:07 66 18 107/76 98 11/08/19 02:04 70 17 104/77 11/08/19 02:00 63 16 97 11/08/19 01:49 73 16 112/75 11/08/19 01:34 66 14 104/73 94 11/08/19 01:30 68 18 95 11/08/19 01:20 97.2 F L 11/08/19 01:19 63 16 108/73 98 11/08/19 01:04 64 22 109/75 98 11/08/19 01:00 67 19 99 11/08/19 00:49 63 20 109/73 98 11/08/19 00:34 64 24 111/75 99 11/08/19 00:30 64 16 97 11/08/19 00:19 64 21 112/78 96 11/08/19 00:04 65 22 112/76 95 11/08/19 00:01 65 19 11/08/19 00:00 64 16 113/77 98 11/07/19 23:48 65 18 113/77 100 11/07/19 23:33 70 16 112/78 11/07/19 23:30 60 16 92 11/07/19 23:18 73 19 99/66 L 97 11/07/19 23:03 97.2 F L 80 17 81/59 L 96 11/07/19 23:00 72 15 100 11/07/19 22:30 96.3 F L 79 19 81/58 L 97 11/07/19 22:00 96.3 F L 74 20 86/56 L 98 11/07/19 21:30 96.3 F L 82 20 83/57 L 96 11/07/19 21:00 95.7 F L 83 21 97/58 L 97 11/07/19 20:00 96.8 F L 83 23 90/68 L 97 Coding Level of Care Code Critical Care 1st 30-74 mins Diagnoses Status post admission to intensive care unit Lactic acid acidosis E87.2 Elevated troponin R79.89 Hypovolemic shock R57.1 GI bleed K92.2 Alcohol use disorder Hematemesis K92.0 Hypokalemia E87.6 Severe protein-energy malnutrition E43 Cachexia R64 Time Spent (min) 40
[2019-11-08] MEDS: GABAPENTIN 600 MG TAB PO SCH ×2 (08:18→12:09)
[2019-11-08] MEDS: THIAMINE HCL 100 MG TAB PO SCH (08:18)
--- NOTE | 2019-11-08 08:49 | Gastroenterology Progress Note ---
Date of Service November 08, 2019 Assessment & Plan (1) Hematemesis: Pt is a 44 y/o male, presented to ED w hematemesis. Hx of bipolar, ETOH abuse, fatty liver. He takes NSAIDs on prn basis, hx of gastritis, duodenitis on last EGD in 2016. On eval noted to be hypotensive, tachycardic, H/H 7/23 (b aseline hgb 8-10), low plt which seems chronic, mildly elevated INR, lactic acidosis. Blood cx pending. He received 2U PRBC transfusion yesterday, Hgb up to 10. Had small amt of thin pudding like tarry stools but no hematemesis. BP remains soft, on 2 pressors. - Monitor H/H and transfuse prn - Keep NPO - PPI bolus and gtt - Octreotide bolus and gtt; Ceftriaxone IV for possible SBP prophylaxis in setting of GI bleeding (suspect possible cirrhosis given low plts and elevated INR in pt w fatty liver) - IVF resuscitation; pressors management per ICU team. - FU blood cx - F/U CT abd/pelvis to be done this AM - Consider Cardiology eval for elevated Troponin - Initially planning for EGD to r/o UGI bleed, however given that he's on 2 pressors, would hold off at this time. We'll continue to re-eval him to determine timing of EGD. Admission and Anticipated Discharge Date Admission Date: November 07, 2019 Supervising Physician Co-Signing Physician Notes I have seen and examined the patient with PHYLLIS Arguello whose note reflects our findings and plan. Patient without overt s/s of on-going GI bleeding. Requiring 2 pressors. H/H is 10. Poor UOP. Elevated lactate. Will hold off on EGD today and continue the PPI and octreotide gtt. Subjective Pt on Vasopressin and Norepinephrine pressors. BP 90/77. He had small amt of thin pudding, tarry stools this AM. No hematemesis. He is c/o some generalized abd pain. Going to have CT abd/pelvis this AM He received 2U PRBC transfusion yesterday, Hgb up to 10 Review of Systems Review of Systems: All systems reviewed & are unremarkable except as noted in HPI & below Physical Exam Constitutional: + ill appearing and + thin Eyes: PERRL, conjunctivae normal, anicteric sclerae ENMT: poor dentition Respiratory: Auscultation: + diminished lung sounds Cardiovascular: RRR, no murmur, no edema Gastrointestinal (Abdomen): Inspection/Auscultation: + hypoactive bowel sounds Percussion/Palpation: + abdomen tender (generalized) and abdomen soft Skin: + pallor; no jaundice Psychiatric: A+Ox3, euthymic affect Lymphatic: no lymphedema Results & Data ([facility]) Vital Signs (Past 12 Hours) Vital Signs Temp Pulse Resp BP Pulse Ox 11/08/19 06:00 68 21 94 11/08/19 05:37 68 22 96/66 L 95 11/08/19 05:30 73 21 97 11/08/19 05:08 67 18 104/62 96 11/08/19 05:00 65 20 96 11/08/19 04:44 53 L 22 129/86 97 11/08/19 04:43 50 L 21 98 11/08/19 04:40 68 20 89/64 L 96 11/08/19 04:37 69 22 88/63 L 95 11/08/19 04:30 67 22 97 11/08/19 04:07 68 21 97/73 L 95 11/08/19 04:00 36.3 C L 67 16 92 11/08/19 03:37 67 18 102/72 96 11/08/19 03:30 65 20 97 11/08/19 03:07 65 20 105/77 97 11/08/19 03:00 65 20 96 11/08/19 02:54 68 16 106/73 95 11/08/19 02:30 64 18 96 11/08/19 02:07 66 18 107/76 98 11/08/19 02:04 70 17 104/77 11/08/19 02:00 63 16 97 11/08/19 01:49 73 16 112/75 11/08/19 01:34 66 14 104/73 94 11/08/19 01:30 68 18 95 11/08/19 01:20 36.2 C L 11/08/19 01:19 63 16 108/73 98 11/08/19 01:04 64 22 109/75 98 11/08/19 01:00 67 19 99 11/08/19 00:49 63 20 109/73 98 11/08/19 00:34 64 24 111/75 99 11/08/19 00:30 64 16 97 11/08/19 00:19 64 21 112/78 96 11/08/19 00:04 65 22 112/76 95 11/08/19 00:01 65 19 11/08/19 00:00 64 16 113/77 98 11/07/19 23:48 65 18 113/77 100 11/07/19 23:33 70 16 112/78 11/07/19 23:30 60 16 92 11/07/19 23:18 73 19 99/66 L 97 11/07/19 23:03 36.2 C L 80 17 81/59 L 96 11/07/19 23:00 72 15 100 11/07/19 22:30 35.7 C L 79 19 81/58 L 97 11/07/19 22:00 35.7 C L 74 20 86/56 L 98 11/07/19 21:30 35.7 C L 82 20 83/57 L 96 11/07/19 21:00 35.4 C L 83 21 97/58 L 97
[2019-11-08] MEDS ORDERED: CEFEPIME 1,000 MG in SYRINGE 0 ML IV STA (09:46)
[2019-11-08 11:07] LABS: Basophils # (auto) 0.01 K/uL (0-0.2); Basophils % (auto) 0.1 %; Echinocytes 1+; Eosinophils # (auto) 0.01 K/uL (0-0.5); Eosinophils % (auto) 0.1 %; Hematocrit (blood only) 27.6 % (42-52); Hemoglobin 9.4 g/dL (14.0-18.0); Immature Granulocytes # (auto) 0.04 K/uL (0.00-0.02); Immature Granulocytes % (auto) 0.3 %; Lymphocytes # (auto) 1.77 K/uL (1.2-3.4); Mean Corpuscular Hemoglobin 33.1 pg (25-34); Mean Corpuscular Hgb Conc 34.1 g/dL (32-36); Mean Corpuscular Volume 97.2 fL (80-100); Mean Platelet Volume 13.8 fL (7.4-10.4); Monocytes # (auto) 0.95 K/uL (0.11-0.59); Neutrophils # (auto) 10.84 K/uL (1.4-6.5); Neutrophils % (auto) 79.5 %; Nucleated RBC # (auto) 0.04 K/uL (0-0); Nucleated RBC % (auto) 0.3 %; Platelet Count 72 K/uL (130-400); Platelet Estimate Decreased (Normal); RDW Coefficient of Variation 19.8 % (11.5-14.5); RDW Standard Deviation 70.3 fL (36.4-46.3); Red Blood Count 2.84 M/uL (4.7-6.1); White Blood Count 13.62 K/uL (4.8-10.8)
[2019-11-08] MEDS: CEFEPIME 2,000 MG in SYRINGE 7.5 ML IV SCH ×2 (11:16→20:16)
[2019-11-08] MEDS ORDERED: IOVERSOL 100ml IV PRN (12:49)
--- NOTE | 2019-11-08 12:57 | CT Scan Report ---
CT head/brain wo con CLINICAL HISTORY: mild confusion, difficulty opening right eye COMPARISON STUDY: No previous studies for comparison. TECHNIQUE: Axial CT of the brain is performed from the vertex to the skull base. IV contrast was not administered for this examination. A dose lowering technique was utilized adhering to the principles of ALARA. CT DOSE: 729.78 mGycm FINDINGS: No intra or extra-axial mass lesions are visualized. There is no CT evidence of acute cortical infarc tion. There is no evidence of midline shift. There is no acute hemorrhage. No calvarial fractures ar e visualized. There is no evidence of pathologic ventricular dilatation. There is no evidence of acute sinusitis IMPRESSION: No acute intracranial findings ACT 112: Negative or not required by law. Electronically signed by: Romulo Cleary M.D. 11/08/2019 12:55 PM
--- NOTE | 2019-11-08 13:34 | CT Scan Report ---
CT abdomen w IV con HISTORY: 44 years-old Male abdominal pain, uti, pyelo? Acute generalized abdominal pain with urinary tract infection COMPARISON: CT abdomen and pelvis 01/16/2016 TECHNIQUE: Multiple axial CT images of the abdomen were obtained following the intravenous administra tion of 94 mL Optiray 320. A dose lowering technique was used consistent with the principals of JAY . FINDINGS: Small bilateral pleural effusions, left greater the right. Mild dependent right basilar atelectasis. Consolidation and groundglass opacities of the basal left lower lobe. Subpleural groundglass opacitie s of the lateral segment right middle lobe and lateral basal segment right lower lobe. 4 mm subpleura l solid nodule of the lateral basal right lower lobe appears unchanged. Limited exam secondary to upp er extremity positioning. No pneumatosis or pneumoperitoneum identified. Trace pericardial effusion. Imaged inferior cardiac chambers are unremarkable. There are linear areas of decreased enhancement involving the peripheral spleen both superiorly and i nferiorly. Pancreas is unremarkable. The adrenal glands are within normal limits. Patency of the hepa tic and portal veins. Nonspecific enlarged periportal lymph nodes including conglomerate adenopathy m easuring up to 2.2 x 1.5 cm. Moderate gallbladder distention. Mild intrahepatic and extrahepatic bili melvina ductal dilation. Linear branching lucencies are noted within the left hepatic lobe. Air is also n oted within the IVC. Recanalization of the umbilical vein. There is suggestion of mild marginal nodul arity of the liver. No hepatic mass lesion identified. There are 2 linear areas of decreased enhancement involving the superior interpolar portions of the l eft kidney, please see images 128 and 126 of series 3. Mild nonspecific bilateral perinephric strandi ng. No obstructive uropathy. Moderate mixed plaque of the abdominal aorta. Central venous line is not ed the right external iliac vein and inferior aspect of the IVC. Air is noted within the IVC. Mildly prominent aortic lymph nodes. Diffuse mesenteric and body wall edema. Trace abdominal pelvic ascites. There is wall thickening of t he cecum and ascending colon with lucencies within the cecum and ascending colon. Mild wall thickenin g of the terminal ileum. The appendix is not diagnostically visualized. Tiny fat filled periumbilical hernia. T11 burst fracture is noted with minimal paravertebral edema. No retropulsion or significant central canal stenosis. This is new from 2016. IMPRESSION: 1. Subtle marginal nodularity of the liver is suspicious for cirrhotic liver disease. Correlate with LFTs and patient history. 2. Fluid overload manifested by left greater than right pleural effusions, trace pericardial effusion , diffuse mesenteric and body wall edema with trace abdominal pelvic ascites. 3. 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 4. Linear branching lucencies within the left hepatic lobe are suggestive of portal venous gas. Addit ionally, there is wall thickening with peripherally distributed lucencies within the cecum and ascend ing colon suspicious for a nonspecific colitis with possible pneumatosis. Alternatively, this could b e normal intraluminal gas with wall thickening secondary to fluid overload. Correlate with patient's symptoms to exclude ischemic bowel. If symptoms persist, a follow-up short-term CT abdomen and pelvis may be considered. 5. Acute versus subacute T11 burst fracture. 6. Asymmetric consolidative and groundglass opacities of the left lung base are suspicious for pneumo nitis, atelectasis could appear similarly. ACT 112: Negative or not required by law. The above report was generated using voice recognition software. It may contain grammatical, syntax o r spelling errors. Electronically signed by: Deven Strauss M.D. 11/08/2019 1:33 PM
[2019-11-08 14:52] LABS: Hematocrit (blood only) 26.8 % (42-52); Hemoglobin 9.1 g/dL (14.0-18.0); Mean Corpuscular Volume 97.1 fL (80-100); Nucleated RBC # (auto) 0.06 K/uL (0-0); Nucleated RBC % (auto) 0.5 %; Platelet Count 95 K/uL (130-400); RDW Coefficient of Variation 20.1 % (11.5-14.5); Red Blood Count 2.76 M/uL (4.7-6.1); White Blood Count 12.46 K/uL (4.8-10.8)
[2019-11-08 14:53] LABS: Basophils # (auto) 0.02 K/uL (0-0.2); Basophils % (auto) 0.2 %; Echinocytes 1+; Eosinophils # (auto) 0.03 K/uL (0-0.5); Eosinophils % (auto) 0.2 %; Immature Granulocytes # (auto) 0.07 K/uL (0.00-0.02); Immature Granulocytes % (auto) 0.6 %; Lymphocytes # (auto) 1.66 K/uL (1.2-3.4); Lymphocytes % (auto) 13.3 %; Monocytes # (auto) 0.99 K/uL (0.11-0.59); Monocytes % (auto) 7.9 %; Neutrophils # (auto) 9.69 K/uL (1.4-6.5); Neutrophils % (auto) 77.8 %; Platelet Estimate Decreased (Normal); Toxic Vacuolation 1+
[2019-11-08 14:57] LABS: Hepatitis A Antibody IgM NON-REACTIVE (NON-REACTIVE); Hepatitis B Core Antibody IgM NON-REACTIVE (NON-REACTIVE)
--- NOTE | 2019-11-08 15:05 | Surgery Consultation ---
Date of Consultation November 08, 2019 Assessment & Plan (1) Nonspecific colitis: 44 year-old male with history of current alcohol abuse presented to ED with presumed hematemesis. Found to be hypotensive, tachycardic in ED with H&H 7/[address] scan of abdomen with contrast showing portal venous gas, wall thickening of cecum and ascending colon concerning for nonspecific colitis with possible pneumatosis. Leukocytosis of 13.62K. Tarry stools this am. s/p 2 units of PRBCs. INR elevated at 1.3. Lactate 1.[address] scan concerning for cirrhosis given alcohol abuse. Abdomen is soft, nondistended, RUQ tenderness without peritonitis or rigidity. GI cancelled EGD today given hypotensive requiring two pressors. Plan: Given patient's chronic alcohol abuse and laboratory and imaging findings highly concerning for cirrhosis, would not recommend surgical intervention at this facility. If he were to require surgical intervention, would recommend transfer to tertiary center. Currently he does not have peritonitis and lactic acid normalized after aggressive fluid resuscitation Continue ICU management (2) Acute blood loss anemia: No alesia GI bleeding today H&H stable , s/p 2 units of PRBCs GI following Secondary to variceal bleeding given cirrhosis findings on imaging and alcohol abuse vs ischemic colitis plan as above (3) Shock: secondary to acute blood loss from GI bleed (hematemesis and melena) Could be secondary to variceal bleeding given cirrhosis findings and alcohol abuse vs ischemic colitis plan as above Dr. Nash examined patient and discussed recommendation to ICU attending Dr. Davalos. Please see addendum for further recommendations/plan. Supervising Physician Co-Signing Physician Notes I interviewed and examined this patient I agree with the above note. This patient was admitted with most likely sepsis. There is evidence of a possible colitis with may be ischemia. He also has cirrhosis and GI bleeding. His INR is elevated. He has a pleural effusion on both sides. He has pericardial effusion. I would recommend a tertiary care center for further treatment. History of Present Illness Reason for Consultation: Ischemic colitis, gallbladder distention Requesting Physician: Cuco Davalos MD Attending Physician: Fredi Murrieta MD History of Present Illness Zack is a 44 year-old male with history of alcohol abuse (drinking 12 beers per day), bipolar disorder, and fatty liver who was brought to emergency department by friends for hematemesis. Found to be hypotensive, tachycardic, H&H 7/23 (baseline hgb 8-10), and lactic acidosis of 7 in the ED. Started on pressors. CT scan of abdomen with IV contrast was obtained today which showed linear branching lucencies within the left hepatic lobe are suggestive of portal venous gas. Additionally, there is wall thickening with peripherally distributed lucencies within the cecum and ascending colon suspicious for a nonspecific colitis with possible pneumatosis. Alternatively, this could be normal intraluminal gas with wall thickening secondary to fluid overload. Leukocytosis of 13k today. Lactic acid from 7 --> 4.9 --> 2.5 --> 1.2 (today). Our services consulted due to possible ischemic bowel. Zack is lying in bed with eyes closed, unable to obtain good history from him, mostly from chart. Nurse in room said he is currently still on two pressors, IV Protonix drip, and Octreotide. Had tarry stool this am and some bright red blood per rectum. Sp 2 units of PRBCs. Discussed with GI who cancelled EGD today given instability and hypotension requiring pressors. Do not feel bleeding is from varices but likely from ischemic colitis given CT scan results. Allergies Allergy/AdvReac Type Severity Reaction Status Date / Time No Known Allergies Allergy Verified 11/07/19 15:09 Home Medications Home Medications Medication Instructions Recorded Confirmed Type [id number]-[id number] 1 tab PO Q6H PRN 11/07/19 11/07/19 History [Excedrin Extra Strength] ibuprofen [Advil] 400 mg PO Q6H PRN 11/07/19 11/07/19 History Patient History Medical History Alcohol use disorder Bipolar disorder Cachexia Hypokalemia Severe protein-energy malnutrition Status post admission to intensive care unit Tobacco use disorder Surgical History History of colonoscopy History of esophagogastroduodenoscopy (EGD) Family History Other Diabetes Social History Preferred Language: Vietnamese Communication Ability: Effective Incinerator Attendant Required: No Beliefs That Will Affect Care: None Current Living Situation: Other Current Living Situation Comment: lives in apartment with roommates Feels Safe at Home: Yes Smoking Status: Current every day smoker Tobacco Type: cigarettes ; Cigarettes Per Day: 2-4 packs daily ; Second Hand Exposure: Yes ; Hx Alcohol Use: Yes (15 beers daily ) Alcohol type: beer Alcohol Intake Frequency: Daily Hx Substance Use: Yes Substance Use Type Other:: SNORTED COCAINE IN 2017 Review of Systems Review of Systems: Patient denies abdominal pain when asked, does not given any more ROS. Physical Exam Constitutional: + thin and + cachectic; no acute distress Respiratory: normal respiratory effort; no respiratory distress, no labored breathing, no retractions and does not use accessory muscles Gastrointestinal (Abdomen): Inspection/Auscultation: abdomen normal to inspection; abdomen not distended Percussion/Palpation: + abdomen tender (RUQ on deep palpation) and abdomen soft; no guarding and abdomen not rigid No peritonitis Skin: no rashes, warm and dry Psychiatric: Orientation: alert Results & Data Vital Signs (Past 12 Hours) Vital Signs Temp Pulse Resp BP Pulse Ox 11/08/19 09:07 69 20 96/72 L 91 11/08/19 08:38 73 21 92/63 L 86 L 11/08/19 08:34 70 24 99/71 L 89 L 11/08/19 08:07 36.4 C L 73 17 88/60 L 90 11/08/19 07:37 71 25 H 86/62 L 11/08/19 07:07 72 24 94/66 L 11/08/19 06:00 68 21 94 11/08/19 05:37 68 22 96/66 L 95 11/08/19 05:30 73 21 97 11/08/19 05:08 67 18 104/62 96 11/08/19 05:00 65 20 96 11/08/19 04:44 53 L 22 129/86 97 11/08/19 04:43 50 L 21 98 11/08/19 04:40 68 20 89/64 L 96 11/08/19 04:37 69 22 88/63 L 95 11/08/19 04:30 67 22 97 11/08/19 04:07 68 21 97/73 L 95 11/08/19 04:00 36.3 C L 67 16 92 11/08/19 03:37 67 18 102/72 96 11/08/19 03:30 65 20 97 06/09/20 03:07 65 20 105/77 97 Laboratory Results 11/08/19 11/08/19 11/08/19 Range/Units 14:07 14:07 10:39 WBC 12.46 H (4.8-10.8) K/uL RBC 2.76 L (4.7-6.1) M/uL Hgb 9.1 L (14.0-18.0) g/dL Hct 26.8 L (42-52) % MCV 97.1 (80-100) fL MCH 33.0 (25-34) pg MCHC 34.0 (32-36) g/dL RDW Std Deviation 70.0 H (36.4-46.3) fL RDW Coeff of Santos 20.1 H (11.5-14.5) % Plt Count 95 L (130-400) K/uL MPV 14.0 H (7.4-10.4) fL Immature Gran % (Auto) 0.6 % Neut % (Auto) 77.8 % Lymph % (Auto) 13.3 % [place] % (Auto) 7.9 % Eos % (Auto) 0.2 % Baso % (Auto) 0.2 % Immature Gran # (Auto) 0.07 H (0.00-0.02) K/uL Neut # (Auto) 9.69 H (1.4-6.5) K/uL Lymph # (Auto) 1.66 (1.2-3.4) K/uL [place] # (Auto) 0.99 H (0.11-0.59) K/uL Eos # (Auto) 0.03 (0-0.5) K/uL Baso # (Auto) 0.02 (0-0.2) K/uL Absolute Nucleated RBC 0.06 H (0-0) K/uL Nucleated RBC % (auto) 0.5 % Toxic Vacuolation 1+ Platelet Estimate Decreased L (Normal) Echinocytes 1+ PT (9.0-12.0) Seconds INR (0.9-1.1) APTT (21.0-31.0) Seconds PTT Ratio Sodium Pending (136-145) mmol/L Potassium Pending (3.5-5.1) mmol/L Chloride Pending (98-107) mmol/L Carbon Dioxide Pending (21-32) mmol/L Anion Gap Pending (3-11) BUN Pending (7-18) mg/dl Creatinine Pending (0.6-1.4) mg/dl Est Cr Clr Drug Dosing Pending ml/min Est GFR ( Amer) Pending Est GFR (Non-Af Amer) Pending BUN/Creatinine Ratio Pending (10-20) Glucose Pending (70-99) mg/dl POC Glucose (70-99) mg/dl POC Glucose (other) 169 H (70-99) mg/dl Lactate (0.4-2.0) mmol/L Calcium Pending (8.5-10.1) mg/dl Phosphorus (2.5-4.9) mg/dl Magnesium (1.8-2.4) mg/dl Total Bilirubin (0.2-1) mg/dl AST (15-37) U/L ALT (12-78) U/L Alkaline Phosphatase (45-117) U/L Total Creatine Kinase (39-308) U/L Troponin I (0-0.045) ng/ml Total Protein (6.4-8.2) gm/dl Albumin (3.4-5.0) gm/dl Globulin (2.5-4.0) gm/dl Albumin/Globulin Ratio (0.9-2) Folate (>5.38) ng/ml Urine Opiates Screen (Neg) Ur Methadone, Qual (Neg) Urine Barbiturates (Neg) Ur Phencyclidine (PCP) (Neg) U Amphetamin/Meth Scrn (Neg) MDMA (Ecstasy) Screen (Neg) U Benzodiazepines Scrn (Neg) Ur Cocaine Metabolite (Neg) U Marijuana (THC) Screen (Neg) Hepatitis A IgM Ab (NON-REACTIVE) Hep B Core IgM Ab (NON-REACTIVE) Blood Type Recheck Crossmatch 11/08/19 11/08/19 11/08/19 Range/Units 10:38 10:38 04:25 WBC 13.62 H (4.8-10.8) K/uL RBC 2.84 L (4.7-6.1) M/uL Hgb 9.4 L (14.0-18.0) g/dL Hct 27.6 L (42-52) % MCV 97.2 (80-100) fL MCH 33.1 (25-34) pg MCHC 34.1 (32-36) g/dL RDW Std Deviation 70.3 H (36.4-46.3) fL RDW Coeff of Santos 19.8 H (11.5-14.5) % Plt Count 72 L (130-400) K/uL MPV 13.8 H (7.4-10.4) fL Immature Gran % (Auto) 0.3 % Neut % (Auto) 79.5 % Lymph % (Auto) 13.0 % [place] % (Auto) 7.0 % Eos % (Auto) 0.1 % Baso % (Auto) 0.1 % Immature Gran # (Auto) 0.04 H (0.00-0.02) K/uL Neut # (Auto) 10.84 H (1.4-6.5) K/uL Lymph # (Auto) 1.77 (1.2-3.4) K/uL [place] # (Auto) 0.95 H (0.11-0.59) K/uL Eos # (Auto) 0.01 (0-0.5) K/uL Baso # (Auto) 0.01 (0-0.2) K/uL Absolute Nucleated RBC 0.04 H (0-0) K/uL Nucleated RBC % (auto) 0.3 % Toxic Vacuolation Platelet Estimate Decreased L (Normal) Echinocytes 1+ PT 13.6 H (9.0-12.0) Seconds INR 1.3 H (0.9-1.1) APTT 39.6 H (21.0-31.0) Seconds PTT Ratio 1.4 Sodium (136-145) mmol/L Potassium (3.5-5.1) mmol/L Chloride (98-107) mmol/L Carbon Dioxide (21-32) mmol/L Anion Gap (3-11) BUN (7-18) mg/dl Creatinine (0.6-1.4) mg/dl Est Cr Clr Drug Dosing ml/min Est GFR ( Amer) Est GFR (Non-Af Amer) BUN/Creatinine Ratio (10-20) Glucose (70-99) mg/dl POC Glucose (70-99) mg/dl POC Glucose (other) (70-99) mg/dl Lactate 1.2 (0.4-2.0) mmol/L Calcium (8.5-10.1) mg/dl Phosphorus (2.5-4.9) mg/dl Magnesium (1.8-2.4) mg/dl Total Bilirubin (0.2-1) mg/dl AST (15-37) U/L ALT (12-78) U/L Alkaline Phosphatase (45-117) U/L Total Creatine Kinase (39-308) U/L Troponin I (0-0.045) ng/ml Total Protein (6.4-8.2) gm/dl Albumin (3.4-5.0) gm/dl Globulin (2.5-4.0) gm/dl Albumin/Globulin Ratio (0.9-2) Folate (>5.38) ng/ml Urine Opiates Screen (Neg) Ur Methadone, Qual (Neg) Urine Barbiturates (Neg) Ur Phencyclidine (PCP) (Neg) U Amphetamin/Meth Scrn (Neg) MDMA (Ecstasy) Screen (Neg) U Benzodiazepines Scrn (Neg) Ur Cocaine Metabolite (Neg) U Marijuana (THC) Screen (Neg) Hepatitis A IgM Ab (NON-REACTIVE) Hep B Core IgM Ab (NON-REACTIVE) Blood Type Recheck Crossmatch 11/08/19 11/08/19 11/08/19 Range/Units 04:25 04:25 00:07 WBC 16.96 H (4.8-10.8) K/uL RBC 3.03 L (4.7-6.1) M/uL Hgb 10.1 L 10.2 L (14.0-18.0) g/dL Hct 29.1 L 29.4 L (42-52) % MCV 96.0 D (80-100) fL MCH 33.3 (25-34) pg MCHC 34.7 (32-36) g/dL RDW Std Deviation 68.5 H (36.4-46.3) fL RDW Coeff of Santos 19.8 H (11.5-14.5) % Plt Count 86 L (130-400) K/uL MPV (7.4-10.4) fL Immature Gran % (Auto) % Neut % (Auto) % Lymph % (Auto) % [place] % (Auto) % Eos % (Auto) % Baso % (Auto) % Immature Gran # (Auto) (0.00-0.02) K/uL Neut # (Auto) (1.4-6.5) K/uL Lymph # (Auto) (1.2-3.4) K/uL [place] # (Auto) (0.11-0.59) K/uL Eos # (Auto) (0-0.5) K/uL Baso # (Auto) (0-0.2) K/uL Absolute Nucleated RBC 0.04 H (0-0) K/uL Nucleated RBC % (auto) 0.3 % Toxic Vacuolation Platelet Estimate Decreased L (Normal) Echinocytes PT (9.0-12.0) Seconds INR (0.9-1.1) APTT (21.0-31.0) Seconds PTT Ratio Sodium 136 (136-145) mmol/L Potassium 3.6 D (3.5-5.1) mmol/L Chloride 110 H (98-107) mmol/L Carbon Dioxide 18 L (21-32) mmol/L Anion Gap 8.0 (3-11) BUN 21 H (7-18) mg/dl Creatinine 0.97 D (0.6-1.4) mg/dl Est Cr Clr Drug Dosing 81.2 ml/min Est GFR ( Amer) 108.1 Est GFR (Non-Af Amer) 93.2 BUN/Creatinine Ratio 21.3 H (10-20) Glucose 165 H (70-99) mg/dl POC Glucose (70-99) mg/dl POC Glucose (other) (70-99) mg/dl Lactate (0.4-2.0) mmol/L Calcium 6.6 L (8.5-10.1) mg/dl Phosphorus 2.5 (2.5-4.9) mg/dl Magnesium 1.8 (1.8-2.4) mg/dl Total Bilirubin 2.3 H (0.2-1) mg/dl AST 54 H (15-37) U/L ALT 26 (12-78) U/L Alkaline Phosphatase 41 L (45-117) U/L Total Creatine Kinase 295 (39-308) U/L Troponin I (0-0.045) ng/ml Total Protein 4.5 L (6.4-8.2) gm/dl Albumin 2.1 L (3.4-5.0) gm/dl Globulin 2.4 L (2.5-4.0) gm/dl Albumin/Globulin Ratio 0.9 (0.9-2) Folate (>5.38) ng/ml Urine Opiates Screen (Neg) Ur Methadone, Qual (Neg) Urine Barbiturates (Neg) Ur Phencyclidine (PCP) (Neg) U Amphetamin/Meth Scrn (Neg) MDMA (Ecstasy) Screen (Neg) U Benzodiazepines Scrn (Neg) Ur Cocaine Metabolite (Neg) U Marijuana (THC) Screen (Neg) Hepatitis A IgM Ab (NON-REACTIVE) Hep B Core IgM Ab (NON-REACTIVE) Blood Type Recheck Crossmatch 11/07/19 11/07/19 11/07/19 Range/Units 20:41 20:39 17:52 WBC (4.8-10.8) K/uL RBC (4.7-6.1) M/uL Hgb 10.7 L (14.0-18.0) g/dL Hct 31.3 L (42-52) % MCV (80-100) fL MCH (25-34) pg MCHC (32-36) g/dL RDW Std Deviation (36.4-46.3) fL RDW Coeff of Santos (11.5-14.5) % Plt Count (130-400) K/uL MPV (7.4-10.4) fL Immature Gran % (Auto) % Neut % (Auto) % Lymph % (Auto) % [place] % (Auto) % Eos % (Auto) % Baso % (Auto) % Immature Gran # (Auto) (0.00-0.02) K/uL Neut # (Auto) (1.4-6.5) K/uL Lymph # (Auto) (1.2-3.4) K/uL [place] # (Auto) (0.11-0.59) K/uL Eos # (Auto) (0-0.5) K/uL Baso # (Auto) (0-0.2) K/uL Absolute Nucleated RBC (0-0) K/uL Nucleated RBC % (auto) % Toxic Vacuolation Platelet Estimate (Normal) Echinocytes PT (9.0-12.0) Seconds INR (0.9-1.1) APTT (21.0-31.0) Seconds PTT Ratio Sodium (136-145) mmol/L Potassium (3.5-5.1) mmol/L Chloride (98-107) mmol/L Carbon Dioxide (21-32) mmol/L Anion Gap (3-11) BUN (7-18) mg/dl Creatinine (0.6-1.4) mg/dl Est Cr Clr Drug Dosing ml/min Est GFR ( Amer) Est GFR (Non-Af Amer) BUN/Creatinine Ratio (10-20) Glucose (70-99) mg/dl POC Glucose 187 H (70-99) mg/dl POC Glucose (other) (70-99) mg/dl Lactate (0.4-2.0) mmol/L Calcium (8.5-10.1) mg/dl Phosphorus (2.5-4.9) mg/dl Magnesium (1.8-2.4) mg/dl Total Bilirubin (0.2-1) mg/dl AST (15-37) U/L ALT (12-78) U/L Alkaline Phosphatase (45-117) U/L Total Creatine Kinase (39-308) U/L Troponin I 0.273 H* (0-0.045) ng/ml Total Protein (6.4-8.2) gm/dl Albumin (3.4-5.0) gm/dl Globulin (2.5-4.0) gm/dl Albumin/Globulin Ratio (0.9-2) Folate (>5.38) ng/ml Urine Opiates Screen (Neg) Ur Methadone, Qual (Neg) Urine Barbiturates (Neg) Ur Phencyclidine (PCP) (Neg) U Amphetamin/Meth Scrn (Neg) MDMA (Ecstasy) Screen (Neg) U Benzodiazepines Scrn (Neg) Ur Cocaine Metabolite (Neg) U Marijuana (THC) Screen (Neg) Hepatitis A IgM Ab (NON-REACTIVE) Hep B Core IgM Ab (NON-REACTIVE) Blood Type Recheck Crossmatch 11/07/19 11/07/19 11/07/19 Range/Units 14:43 14:37 14:37 WBC (4.8-10.8) K/uL RBC (4.7-6.1) M/uL Hgb (14.0-18.0) g/dL Hct (42-52) % MCV (80-100) fL MCH (25-34) pg MCHC (32-36) g/dL RDW Std Deviation (36.4-46.3) fL RDW Coeff of Santos (11.5-14.5) % Plt Count (130-400) K/uL MPV (7.4-10.4) fL Immature Gran % (Auto) % Neut % (Auto) % Lymph % (Auto) % [place] % (Auto) % Eos % (Auto) % Baso % (Auto) % Immature Gran # (Auto) (0.00-0.02) K/uL Neut # (Auto) (1.4-6.5) K/uL Lymph # (Auto) (1.2-3.4) K/uL [place] # (Auto) (0.11-0.59) K/uL Eos # (Auto) (0-0.5) K/uL Baso # (Auto) (0-0.2) K/uL Absolute Nucleated RBC (0-0) K/uL Nucleated RBC % (auto) % Toxic Vacuolation Platelet Estimate (Normal) Echinocytes PT (9.0-12.0) Seconds INR (0.9-1.1) APTT (21.0-31.0) Seconds PTT Ratio Sodium (136-145) mmol/L Potassium (3.5-5.1) mmol/L Chloride (98-107) mmol/L Carbon Dioxide (21-32) mmol/L Anion Gap (3-11) BUN (7-18) mg/dl Creatinine (0.6-1.4) mg/dl Est Cr Clr Drug Dosing ml/min Est GFR ( Amer) Est GFR (Non-Af Amer) BUN/Creatinine Ratio (10-20) Glucose (70-99) mg/dl POC Glucose (70-99) mg/dl POC Glucose (other) (70-99) mg/dl Lactate 2.5 H* (0.4-2.0) mmol/L Calcium (8.5-10.1) mg/dl Phosphorus (2.5-4.9) mg/dl Magnesium (1.8-2.4) mg/dl Total Bilirubin (0.2-1) mg/dl AST (15-37) U/L ALT (12-78) U/L Alkaline Phosphatase (45-117) U/L Total Creatine Kinase (39-308) U/L Troponin I 0.300 H* (0-0.045) ng/ml Total Protein (6.4-8.2) gm/dl Albumin (3.4-5.0) gm/dl Globulin (2.5-4.0) gm/dl Albumin/Globulin Ratio (0.9-2) Folate (>5.38) ng/ml Urine Opiates Screen (Neg) Ur Methadone, Qual (Neg) Urine Barbiturates (Neg) Ur Phencyclidine (PCP) (Neg) U Amphetamin/Meth Scrn (Neg) MDMA (Ecstasy) Screen (Neg) U Benzodiazepines Scrn (Neg) Ur Cocaine Metabolite (Neg) U Marijuana (THC) Screen (Neg) Hepatitis A IgM Ab (NON-REACTIVE) Hep B Core IgM Ab (NON-REACTIVE) Blood Type Recheck A Positive Crossmatch 11/07/19 11/07/19 11/07/19 Range/Units 14:37 14:05 12:30 WBC (4.8-10.8) K/uL RBC (4.7-6.1) M/uL Hgb (14.0-18.0) g/dL Hct (42-52) % MCV (80-100) fL MCH (25-34) pg MCHC (32-36) g/dL RDW Std Deviation (36.4-46.3) fL RDW Coeff of Santos (11.5-14.5) % Plt Count (130-400) K/uL MPV (7.4-10.4) fL Immature Gran % (Auto) % Neut % (Auto) % Lymph % (Auto) % [place] % (Auto) % Eos % (Auto) % Baso % (Auto) % Immature Gran # (Auto) (0.00-0.02) K/uL Neut # (Auto) (1.4-6.5) K/uL Lymph # (Auto) (1.2-3.4) K/uL [place] # (Auto) (0.11-0.59) K/uL Eos # (Auto) (0-0.5) K/uL Baso # (Auto) (0-0.2) K/uL Absolute Nucleated RBC (0-0) K/uL Nucleated RBC % (auto) % Toxic Vacuolation Platelet Estimate (Normal) Echinocytes PT (9.0-12.0) Seconds INR (0.9-1.1) APTT (21.0-31.0) Seconds PTT Ratio Sodium (136-145) mmol/L Potassium (3.5-5.1) mmol/L Chloride (98-107) mmol/L Carbon Dioxide (21-32) mmol/L Anion Gap (3-11) BUN (7-18) mg/dl Creatinine (0.6-1.4) mg/dl Est Cr Clr Drug Dosing ml/min Est GFR ( Amer) Est GFR (Non-Af Amer) BUN/Creatinine Ratio (10-20) Glucose (70-99) mg/dl POC Glucose (70-99) mg/dl POC Glucose (other) (70-99) mg/dl Lactate (0.4-2.0) mmol/L Calcium (8.5-10.1) mg/dl Phosphorus 2.7 (2.5-4.9) mg/dl Magnesium (1.8-2.4) mg/dl Total Bilirubin (0.2-1) mg/dl AST (15-37) U/L ALT (12-78) U/L Alkaline Phosphatase (45-117) U/L Total Creatine Kinase 615 H (39-308) U/L Troponin I (0-0.045) ng/ml Total Protein (6.4-8.2) gm/dl Albumin (3.4-5.0) gm/dl Globulin (2.5-4.0) gm/dl Albumin/Globulin Ratio (0.9-2) Folate > 24.00 (>5.38) ng/ml Urine Opiates Screen Neg (Neg) Ur Methadone, Qual Neg (Neg) Urine Barbiturates Neg (Neg) Ur Phencyclidine (PCP) Neg (Neg) U Amphetamin/Meth Scrn Neg (Neg) MDMA (Ecstasy) Screen Neg (Neg) U Benzodiazepines Scrn Neg (Neg) Ur Cocaine Metabolite Neg (Neg) U Marijuana (THC) Screen Neg (Neg) Hepatitis A IgM Ab (NON-REACTIVE) Hep B Core IgM Ab (NON-REACTIVE) Blood Type Recheck Crossmatch 11/07/19 11/07/19 Range/Units 12:30 09:09 WBC (4.8-10.8) K/uL RBC (4.7-6.1) M/uL Hgb (14.0-18.0) g/dL Hct (42-52) % MCV (80-100) fL MCH (25-34) pg MCHC (32-36) g/dL RDW Std Deviation (36.4-46.3) fL RDW Coeff of Santos (11.5-14.5) % Plt Count (130-400) K/uL MPV (7.4-10.4) fL Immature Gran % (Auto) % Neut % (Auto) % Lymph % (Auto) % [place] % (Auto) % Eos % (Auto) % Baso % (Auto) % Immature Gran # (Auto) (0.00-0.02) K/uL Neut # (Auto) (1.4-6.5) K/uL Lymph # (Auto) (1.2-3.4) K/uL [place] # (Auto) (0.11-0.59) K/uL Eos # (Auto) (0-0.5) K/uL Baso # (Auto) (0-0.2) K/uL Absolute Nucleated RBC (0-0) K/uL Nucleated RBC % (auto) % Toxic Vacuolation Platelet Estimate (Normal) Echinocytes PT (9.0-12.0) Seconds INR (0.9-1.1) APTT (21.0-31.0) Seconds PTT Ratio Sodium (136-145) mmol/L Potassium (3.5-5.1) mmol/L Chloride (98-107) mmol/L Carbon Dioxide (21-32) mmol/L Anion Gap (3-11) BUN (7-18) mg/dl Creatinine (0.6-1.4) mg/dl Est Cr Clr Drug Dosing ml/min Est GFR ( Amer) Est GFR (Non-Af Amer) BUN/Creatinine Ratio (10-20) Glucose (70-99) mg/dl POC Glucose (70-99) mg/dl POC Glucose (other) (70-99) mg/dl Lactate (0.4-2.0) mmol/L Calcium (8.5-10.1) mg/dl Phosphorus (2.5-4.9) mg/dl Magnesium (1.8-2.4) mg/dl Total Bilirubin (0.2-1) mg/dl AST (15-37) U/L ALT (12-78) U/L Alkaline Phosphatase (45-117) U/L Total Creatine Kinase (39-308) U/L Troponin I (0-0.045) ng/ml Total Protein (6.4-8.2) gm/dl Albumin (3.4-5.0) gm/dl Globulin (2.5-4.0) gm/dl Albumin/Globulin Ratio (0.9-2) Folate (>5.38) ng/ml Urine Opiates Screen (Neg) Ur Methadone, Qual (Neg) Urine Barbiturates (Neg) Ur Phencyclidine (PCP) (Neg) U Amphetamin/Meth Scrn (Neg) MDMA (Ecstasy) Screen (Neg) U Benzodiazepines Scrn (Neg) Ur Cocaine Metabolite (Neg) U Marijuana (THC) Screen (Neg) Hepatitis A IgM Ab NON-REACTIVE (NON-REACTIVE) Hep B Core IgM Ab NON-REACTIVE (NON-REACTIVE) Blood Type Recheck Crossmatch See Detail Diagnostic Findings CT abdomen w IV con HISTORY: 44 years-old Male abdominal pain, uti, pyelo? Acute generalized abdominal pain with urinary tract infection COMPARISON: CT abdomen and pelvis 01/16/2016 TECHNIQUE: Multiple axial CT images of the abdomen were obtained following the intravenous administration of 94 mL Optiray 320. A dose lowering technique was used consistent with the principals of JAY. FINDINGS: Small bilateral pleural effusions, left greater the right. Mild dependent right basilar atelectasis. Consolidation and groundglass opacities of the basal left lower lobe. Subpleural groundglass opacities of the lateral segment right middle lobe and lateral basal segment right lower lobe. 4 mm subpleural solid nodule of the lateral basal right lower lobe appears unchanged. Limited exam secondary to upper extremity positioning. No pneumatosis or pneumoperitoneum identified. Trace pericardial effusion. Imaged inferior cardiac chambers are unremarkable. There are linear areas of decreased enhancement involving the peripheral spleen both superiorly and inferiorly. Pancreas is unremarkable. The adrenal glands are within normal limits. Patency of the hepatic and portal veins. Nonspecific enlarged periportal lymph nodes including conglomerate adenopathy measuring up to 2.2 x 1.5 cm. Moderate gallbladder distention. Mild intrahepatic and extrahepatic biliary ductal dilation. Linear branching lucencies are noted within the left hepatic lobe. Air is also noted within the IVC. Recanalization of the umbilical vein. There is suggestion of mild marginal nodularity of the liver. No hepatic mass lesion identified. There are 2 linear areas of decreased enhancement involving the superior interpolar portions of the left kidney, please see images 128 and 126 of series 3. Mild nonspecific bilateral perinephric stranding. No obstructive uropathy. Moderate mixed plaque of the abdominal aorta. Central venous line is noted the right external iliac vein and inferior aspect of the IVC. Air is noted within the IVC. Mildly prominent aortic lymph nodes. Diffuse mesenteric and body wall edema. Trace abdominal pelvic ascites. There is wall thickening of the cecum and ascending colon with lucencies within the cecum and ascending colon. Mild wall thickening of the terminal ileum. The appendix is not diagnostically visualized. Tiny fat filled periumbilical hernia. T11 burst fracture is noted with minimal paravertebral edema. No retropulsion or significant central canal stenosis. This is new from 2016. IMPRESSION: 1. Subtle marginal nodularity of the liver is suspicious for cirrhotic liver disease. Correlate with LFTs and patient history. 2. Fluid overload manifested by left greater than right pleural effusions, trace pericardial effusion, diffuse mesenteric and body wall edema with trace abdominal pelvic ascites. 3. 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 4. Linear branching lucencies within the left hepatic lobe are suggestive of portal venous gas. Additionally, there is wall thickening with peripherally distributed lucencies within the cecum and ascending colon suspicious for a nonspecific colitis with possible pneumatosis. Alternatively, this could be normal intraluminal gas with wall thickening secondary to fluid overload. Correlate with patient's symptoms to exclude ischemic bowel. If symptoms persist, a follow-up short-term CT abdomen and pelvis may be considered. 5. Acute versus subacute T11 burst fracture. 6. Asymmetric consolidative and groundglass opacities of the left lung base are suspicious for pneumonitis, atelectasis could appear similarly.
[2019-11-08 15:07] LABS: BUN Creatinine Ratio 19.8 (10-20); Calcium 6.8 mg/dl (8.5-10.1); Creatinine Clr Calc Pharmacy 97.2 ml/min; Est GFR (African American) 123.5; Est GFR (Non-African American) 106.6; Potassium 3.7 mmol/L (3.5-5.1)
--- NOTE | 2019-11-08 15:45 | CT Scan Report ---
CT OF THE CERVICAL SPINE CLINICAL HISTORY: Neck pain status post trauma COMPARISON STUDY: No previous studies for comparison. CT DOSE: TECHNIQUE: CT scan of the cervical spine was performed from the skull base to the thoracic inlet. Nubia ges are reviewed in the axial, sagittal, and coronal planes. IV contrast was not administered for thi s examination. A dose lowering technique was utilized adhering to the principles of ALARA. FINDINGS: There is apical emphysema. There is no pneumothorax. Small droplets of intravascular gas are likely i atrogenic. The prevertebral soft tissues are normal. No acute fractures or subluxations are visualized. There i s a superior endplate C7 compression deformity, likely old. There are mild multilevel degenerative changes IMPRESSION: 1. Mild superior endplate C7 compression deformity, likely old. 2. No definite acute fractures or traumatic subluxations identified ACT 112: Negative or not required by law. Electronically signed by: Romulo Cleary M.D. 11/08/2019 3:43 PM
--- NOTE | 2019-11-08 15:55 | CT Scan Report ---
CT lumbar spine wo con CT DOSE: 1819.29 mGy.cm CLINICAL HISTORY: Low back pain status post trauma TECHNIQUE: Helical images were acquired in transverse plane. Reformatted sagittal and coronal images were reviewed. A dose lowering technique was utilized adhering to the principles of ALARA. CONTRAST: No contrast was administered COMPARISON STUDY: None. FINDINGS: L1-2 level: There is no evidence of significant disc bulge or focal herniation. There is no evidence of spinal or foraminal stenosis. L2-3 level: There is a minimal circumferential disc bulge. There is no significant spinal or foramina l stenosis L3-4 level: There is a minimal circumferential disc bulge. There is no significant spinal or foramina l stenosis L4-5 level: There is no evidence of significant disc bulge or focal herniation. There is no evidence of spinal or foraminal stenosis. L5-S1 level: There is no evidence of significant disc bulge or focal herniation. There is no evidence of spinal or foraminal stenosis. No acute fractures or traumatic subluxations are visualized. Incidental note is made of ascites, bilateral perinephric stranding, and bilateral pleural effusions. IMPRESSION: No fractures or subluxations are visualized. ACT 112: Negative or not required by law. Electronically signed by: Romulo Cleary M.D. 11/08/2019 3:50 PM
--- NOTE | 2019-11-08 15:55 | CT Scan Report ---
THORACIC SPINE CT CT DOSE: HISTORY: t11 burst fracture TECHNIQUE: Multiaxial CT images of the thoracic spine were performed and reformatted in the sagittal and coronal plane without the use of contrast. A dose lowering technique was utilized adhering to e principles of ALARA. COMPARISON: Abdomen and pelvis CT 11/08/2019. FINDINGS: No change in the acute to subacute T11 burst fracture. No associated retropulsion. This dem onstrates up to 50% loss of height centrally. Mild paravertebral edema at this location. No additiona l fractures identified within the thoracic spine. No significant central canal narrowing by CT techni que. Small bilateral pleural effusions persist. IMPRESSION: An acute to subacute T11 burst fracture demonstrating up to 50% loss of height centrally. No associat ed retropulsion. ACT 112: Negative or not required by law. Electronically signed by: Leandro Mccormick M.D. 11/08/2019 3:52 PM
[2019-11-08] MEDS ORDERED: CALCIUM GLUCONATE 10% 1,000 MG in SODIUM CHLORIDE 0.9% 50 ML IV ONE (16:45)
--- NOTE | 2019-11-08 17:36 | Hospitalist Progress Note ---
Date of Service November 08, 2019 Assessment & Plan (1) Hypovolemic shock: Present on admission with elevated lactic acid, procalcitonin, Temp 35.3, Tachycardia and Leukocytosis CXR showed no active disease in the chest. Received 3L NS in the ER and continue to be hypotensive Started on pressor with Levophed in the ER Currently on pressor with Levophed and Vasopressor Received IV abx with Zosyn in the ER Currently on IV cefepime and Vanco Will continue IVF Lactic acid improved from 7 on admission, now normalized Continue PPI drip and Octreotide drip CT abd/pelvis showed Small infarctions of the left kidney and spleen, possibly secondary to thromboembolic disease. Linear branching lucencies within the left hepatic lobe are suggestive of portal venous gas. Additionally, there is wall thickening with peripherally distributed lucencies within the cecum and ascending colon suspicious for a nonspecific colitis with possible pneumatosis. Alternatively, this could be normal intraluminal gas with wall thickening secondary to fluid overload. Possible ischemic bowel. Surgery on board recommended to transfer to tertiary center if require surgical intervention Case discussed with machine sand mixer and recommended to transfer as well to tertiary care Case discussed with [facility] Desktop Support Associate Dr. Alicea and agreed to accept the patient on transfer Will transfer to [facility] for further eval (2) GI bleed: (3) Acute blood loss anemia: Possible related to GI bleed Possible due to NSAIDS Hgb of 7.8 on admission (baseline 9-10). Received 2 units PRBC Gastro on board Keep NPO for now Continue Octreotide bolus and gtt; Ceftriaxone IV for possible SBP prophylaxis in setting of GI bleeding (suspect possible cirrhosis given low plts and elevated INR in pt w fatty liver) Was planning to get an EGD, but since patient is unstable on pressors, EGD was postponed. GI will re-evaluate for EGD once stable Hgb 9.1 today Continue monitor CBC (4) Lactic acid acidosis: Possible relating to GI bleed vs Septic shock vs ischemic bowel lactic acid on admission 7.3 Normalized to 1.3 after IV fluid hydration Urine cx positive for gram negative bacilli CT abd/pelvis showed possible ischemic bowel Continue IV abx with cefepime and Vanco Continue IV fluid Blood cx pending (5) Elevated troponin: Mostly related to demand ischemia due to hypovolemic shock Troponin peaked to 0.3, now trending down EKG showed no ischemic changes ECHO showed no wall motion abnormality with EF 60-65 % Denies any chest pain (6) Alcohol use disorder: History of recent use- 15 beers daily with occasional liquor. Last drink 2 days ago Serum etoh <3 today. Alcohol withdrawal protocol ordered No sign of alcohol withdrawal Gabapentin was discontinue since pt is drowsy (7) Burst fracture of thoracic vertebra: Possible related to fall CT thoracic showed an acute to subacute T11 burst fracture demonstrating up to 50% loss of height centrally. No associated retropulsion. CT cervical spine showed mild superior endplate C7 compression deformity, likely old. No definite acute fractures or traumatic subluxations identified CT Lumbar spine showed no fractures or subluxations are visualized. Ortho consult pending (8) Hematuria, gross: Possible related to NSAID PSA normal urology on board Improved (9) Tobacco use disorder: Smokes 2-4 packs daily/ Cessation counseling ordered (10) Bipolar disorder: Not taking any medication currently DVT Ppx: SCDs for now Code status: FULL PCP: Cindy Dispo: Will transfer to [facility] Admission and Anticipated Discharge Date Admission Date: November 07, 2019 Subjective Pt was seen and examined Lying in bed with no distress Pt has been very sleepy, but awake to talk He fell back to sleep after speaking to him He said that he feels very weak He is talking with his eyes closed He continues to have abdominal pain He said that he has been having blurry vision for the last few weeks Denies any chest pain, palpitation, dizziness and SOB Physical Exam Physical Exam: General- cachetic Head- atraumatic Eyes- PERRL, EOMI, ENT- oropharynx clear Neck- supple, no JVD Lungs- clear to auscultation Heart- regular rhythm; no murmur Abdomen- soft, +tender Extremities- no calf tenderness Neuro- alert, oriented x 3; PERRL, EOMI; no facial palsy; no dysarthria Skin- warm & dry, +petechia, bruises Results & Data Results & Data ([facility]) Vital Signs (Past 12 Hours) Vital Signs Temp Pulse Resp BP Pulse Ox 11/08/19 17:08 69 19 98/72 L 93 11/08/19 16:38 67 26 H 83/61 L 96 11/08/19 16:08 66 20 92/68 L 95 11/08/19 15:49 36.1 C L 67 23 87/57 L 96 11/08/19 14:38 66 20 103/74 93 11/08/19 14:08 63 16 106/76 97 11/08/19 13:38 60 15 103/76 98 11/08/19 13:09 69 22 103/75 11/08/19 12:08 65 22 95/66 L 96 11/08/19 11:38 68 24 95/65 L 11/08/19 11:08 62 24 103/67 11/08/19 10:38 64 24 88/64 L 98 11/08/19 10:08 36 C L 66 23 95/68 L 90 11/08/19 09:38 35.8 C L 68 25 H 95/67 L 95 11/08/19 09:07 69 20 96/72 L 91 11/08/19 08:38 73 21 92/63 L 86 L 11/08/19 08:34 70 24 99/71 L 89 L 11/08/19 08:07 36.4 C L 73 17 88/60 L 90 11/08/19 07:37 71 25 H 86/62 L 11/08/19 07:07 72 24 94/66 L 11/08/19 06:00 68 21 94 11/08/19 05:37 68 22 96/66 L 95
--- NOTE | 2019-11-08 18:47 | Discharge Summary ---
Date of Service November 08, 2019 Admission HPI Per Admitting Provider Patient is a 44-year-old male with a PMH of bipolar disorder, alcohol use disorder and chronic thrombocytopenia who was brought to ED this morning by a friend with complaints of abdominal pain and vomiting blood. Per discussion with friend, patient has been endorsing blood in urine for the past 4 months. Reportedly drinks 15 beers daily with occasional liquor use and smokes 2-4 packs of cigarettes daily. Does not take any prescribed medication but takes Advil and Excedrin multiple times per day, per roommates. No reported melena or hematochezia but roommates note a dark red blood clot in toilet this morning. Has not reportedly drank any alcohol for 2 days. Has been having intermittent abdominal pain and difficulty urinating as well as intermittent nausea and vomiting. Denies fever, chills and cough. Per [facility] records, has last seen PCP in 2016. History of EGD in 2016 with gastritis and duodenitis. No documented history of cirrhosis. Noted to be hypotensive BP 70s/55, HR 100. Leukocytosis of 11.67, hgb of 7.8, hct 23, platelets 74, INR 1.3. Lactic acid elevated at 7.3 with procalcitonin of 39.5. CXR unremarkable. Blood cx pending. Is receiving third liter of NSS and ED physician is placing central line for pressors. Started on IV protonix bolus and drip and octreotide. Started empirically on zosyn in ED. GI recommends ceftriaxone for coverage of possible SBP. recommendation. Dr. Davalos aware and patient to be admitted to ICU. Admission Exam Per Admitting Provider General- Cachetic Head- atraumatic Eyes- PERRL, EOMI, ENT- oropharynx clear Neck- supple, no JVD Lungs- clear to auscultation Heart- regular rhythm; no murmur Abdomen- normal bowel sounds, soft, nontender Extremities- no calf tenderness, multiples red spot and old scars on the skin Neuro- alert, oriented, PERRL, EOMI; no facial palsy; no dysarthria Skin- warm & dry, Principal Diagnosis (1) Hypovolemic shock: (2) GI bleed: (3) Acute blood loss anemia: (4) Lactic acid acidosis: (5) Elevated troponin: (6) Alcohol use disorder (7) Burst fracture of thoracic vertebra (8) Hematuria, gross: (9) Tobacco use disorder: (10) Bipolar disorder: Discharge Exam General- cachetic Head- atraumatic Eyes- PERRL, EOMI, ENT- oropharynx clear Neck- supple, no JVD Lungs- clear to auscultation Heart- regular rhythm; no murmur Abdomen- soft, +tender Extremities- no calf tenderness Neuro- alert, oriented x 3; PERRL, EOMI; no facial palsy; no dysarthria Skin- warm & dry, +petechia, bruises Discharge Data Allergies Allergy/AdvReac Type Severity Reaction Status Date / Time No Known Allergies Allergy Verified 11/07/19 15:09 Consultations 11/07/19 09:50 ED Decision to Admit Stat 11/07/19 10:21 Consult Gastroenterology Routine Consult Electric [employer]eman Routine 11/07/19 11:26 Consult Case Management - Discharge Planning Routine 11/07/19 12:25 Consult Urology Routine 11/08/19 13:47 Consult General Surgery Routine 11/08/19 13:50 Consult Orthopedic Surgery Routine 11/08/19 14:23 Consult Orthopedic Surgery Stat 11/08/19 16:35 Burn CD for patient Stat Procedures Performed Operation Date: 11/08/19 16:30 <No data on this case meets the specified criteria> Ordered Studies 11/07/19 10:10 US point of care ultrasound Stat 11/08/19 07:47 CT abdomen w IV con Urgent 11/08/19 10:16 CT head/brain wo con Urgent 11/08/19 14:19 CT cervical spine wo con Stat CT lumbar spine wo con Stat CT thoracic spine wo con Stat XR chest 1V portable CLINICAL HISTORY: SEPSIS COMPARISON STUDY: 01/14/2016 FINDINGS: The cardiac and mediastinal contours are normal. There is no evidence of focal pulmonary consolidation. There is no evidence of failure. No pleural effusions are visualized.[A vague left apical opacity, likely represents a vascular summation. IMPRESSION: No active disease in the chest. ACT 112: Negative or not required by law. Electronically signed by: Romulo Cleary M.D. 11/07/2019 9:26 AM Dictated: 11/07/19920 Transcribed: 11/07/19920 CT abdomen w IV con HISTORY: 44 years-old Male abdominal pain, uti, pyelo? Acute generalized abdominal pain with urinary tract infection COMPARISON: CT abdomen and pelvis 01/16/2016 TECHNIQUE: Multiple axial CT images of the abdomen were obtained following the intravenous administration of 94 mL Optiray 320. A dose lowering technique was used consistent with the principals of JAY. FINDINGS: Small bilateral pleural effusions, left greater the right. Mild dependent right basilar atelectasis. Consolidation and groundglass opacities of the basal left lower lobe. Subpleural groundglass opacities of the lateral segment right middle lobe and lateral basal segment right lower lobe. 4 mm subpleural solid nodule of the lateral basal right lower lobe appears unchanged. Limited exam secondary to upper extremity positioning. No pneumatosis or pneumoperitoneum identified. Trace pericardial effusion. Imaged inferior cardiac chambers are unremarkable. There are linear areas of decreased enhancement involving the peripheral spleen both superiorly and inferiorly. Pancreas is unremarkable. The adrenal glands are within normal limits. Patency of the hepatic and portal veins. Nonspecific enlarged periportal lymph nodes including conglomerate adenopathy measuring up to 2.2 x 1.5 cm. Moderate gallbladder distention. Mild intrahepatic and extrahepatic biliary ductal dilation. Linear branching lucencies are noted within the left hepatic lobe. Air is also noted within the IVC. Recanalization of the umbilical vein. There is suggestion of mild marginal nodularity of the liver. No hepatic mass lesion identified. There are 2 linear areas of decreased enhancement involving the superior interpolar portions of the left kidney, please see images 128 and 126 of series 3. Mild nonspecific bilateral perinephric stranding. No obstructive uropathy. Moderate mixed plaque of the abdominal aorta. Central venous line is noted the right external iliac vein and inferior aspect of the IVC. Air is noted within the IVC. Mildly prominent aortic lymph nodes. Diffuse mesenteric and body wall edema. Trace abdominal pelvic ascites. There is wall thickening of the cecum and ascending colon with lucencies within the cecum and ascending colon. Mild wall thickening of the terminal ileum. The appendix is not diagnostically visualized. Tiny fat filled periumbilical hernia. T11 burst fracture is noted with minimal paravertebral edema. No retropulsion or significant central canal stenosis. This is new from 2016. IMPRESSION: 1. Subtle marginal nodularity of the liver is suspicious for cirrhotic liver disease. Correlate with LFTs and patient history. 2. Fluid overload manifested by left greater than right pleural effusions, trace pericardial effusion, diffuse mesenteric and body wall edema with trace abdominal pelvic ascites. 3. 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 4. Linear branching lucencies within the left hepatic lobe are suggestive of portal venous gas. Additionally, there is wall thickening with peripherally distributed lucencies within the cecum and ascending colon suspicious for a nonspecific colitis with possible pneumatosis. Alternatively, this could be normal intraluminal gas with wall thickening secondary to fluid overload. Correlate with patient's symptoms to exclude ischemic bowel. If symptoms persist , a follow-up short-term CT abdomen and pelvis may be considered. 5. Acute versus subacute T11 burst fracture. 6. Asymmetric consolidative and groundglass opacities of the left lung base are suspicious for pneumonitis, atelectasis could appear similarly. ACT 112: Negative or not required by law. The above report was generated using voice recognition software. It may contain grammatical, syntax or spelling errors. Electronically signed by: Deven Strauss M.D. 11/08/2019 1:33 PM Dictated: 11/08/19 1310 Transcribed: 11/08/[address] head/brain wo con CLINICAL HISTORY: mild confusion, difficulty opening right eye COMPARISON STUDY: No previous studies for comparison. TECHNIQUE: Axial CT of the brain is performed from the vertex to the skull base. IV contrast was not administered for this examination. A dose lowering technique was utilized adhering to the principles of ALARA. CT DOSE: 729.78 mGycm FINDINGS: No intra or extra-axial mass lesions are visualized. There is no CT evidence of acute cortical infarction. There is no evidence of midline shift. There is no acute hemorrhage. No calvarial fractures are visualized. There is no evidence of pathologic ventricular dilatation. There is no evidence of acute sinusitis IMPRESSION: No acute intracranial findings ACT 112: Negative or not required by law. Electronically signed by: Romulo Cleary M.D. 11/08/2019 12:55 PM Dictated: 11/08/19 1255 Transcribed: 11/08/[address] OF THE CERVICAL SPINE CLINICAL HISTORY: Neck pain status post trauma COMPARISON STUDY: No previous studies for comparison. CT DOSE: TECHNIQUE: CT scan of the cervical spine was performed from the skull base to the thoracic inlet. Images are reviewed in the axial, sagittal, and coronal planes. IV contrast was not administered for this examination. A dose lowering technique was utilized adhering to the principles of ALARA. FINDINGS: There is apical emphysema. There is no pneumothorax. Small droplets of intravas cular gas are likely iatrogenic. The prevertebral soft tissues are normal. No acute fractures or subluxations are visualized. There is a superior endplate C7 compression deformity, likely old. There are mild multilevel degenerative changes IMPRESSION: 1. Mild superior endplate C7 compression deformity, likely old. 2. No definite acute fractures or traumatic subluxations identified ACT 112: Negative or not required by law. Electronically signed by: Romulo Cleary M.D. 11/08/2019 3:43 PM Dictated: 11/08/19 1539 Transcribed: 11/08/[address] lumbar spine wo con CT DOSE: 1819.29 mGy.cm CLINICAL HISTORY: Low back pain status post trauma TECHNIQUE: Helical images were acquired in transverse plane. Reformatted sagittal and coronal images were reviewed. A dose lowering technique was utilized adhering to the principles of ALARA. CONTRAST: No contrast was administered COMPARISON STUDY: None. FINDINGS: L1-2 level: There is no evidence of significant disc bulge or focal herniation. There is no evidence of spinal or foraminal stenosis. L2-3 level: There is a minimal circumferential disc bulge. There is no significant spinal or foraminal stenosis L3-4 level: There is a minimal circumferential disc bulge. There is no significant spinal or foraminal stenosis L4-5 level: There is no evidence of significant disc bulge or focal herniation. There is no evidence of spinal or foraminal stenosis. L5-S1 level: There is no evidence of significant disc bulge or focal herniation. There is no evidence of spinal or foraminal stenosis. No acute fractures or traumatic subluxations are visualized. Incidental note is made of ascites, bilateral perinephric stranding, and bilateral pleural effusions. IMPRESSION: No fractures or subluxations are visualized. ACT 112: Negative or not required by law. Electronically signed by: Romulo Cleary M.D. 11/08/2019 3:50 PM Dictated: 11/08/19 1547 Transcribed: 11/08/[address] DOSE: HISTORY: t11 burst fracture TECHNIQUE: Multiaxial CT images of the thoracic spine were performed and reformatted in the sagittal and coronal plane without the use of contrast. A dose lowering technique was utilized adhering to the principles of ALARA. COMPARISON: Abdomen and pelvis CT 11/08/2019. FINDINGS: No change in the acute to subacute T11 burst fracture. No associated retropulsion. This demonstrates up to 50% loss of height centrally. Mild paravertebral edema at this location. No additional fractures identified within the thoracic spine. No significant central canal narrowing by CT technique. Small bilateral pleural effusions persist. IMPRESSION: An acute to subacute T11 burst fracture demonstrating up to 50% loss of height centrally. No associated retropulsion. ACT 112: Negative or not required by law. Electronically signed by: Leandro Mccormick M.D. 11/08/2019 3:52 PM Dictated: 11/08/19 1548 Transcribed: 11/08/19 154 Hospital Course (1) Hypovolemic shock: (2) GI bleed: Present on admission with elevated lactic acid, procalcitonin, Temp 35.3, Tachycardia and Leukocytosis CXR showed no active disease in the chest. Received 3L NS in the ER and continue to be hypotensive Started on pressor with Levophed in the ER Currently on pressor with Levophed and Vasopressor Received IV abx with Zosyn in the ER Currently on IV cefepime and Vanco Will continue IVF Lactic acid improved from 7 on admission, now normalized Continue PPI drip and Octreotide drip CT abd/pelvis showed Small infarctions of the left kidney and spleen, possibly secondary to thromboembolic disease. Linear branching lucencies within the left hepatic lobe are suggestive of portal venous gas. Additionally, there is wall thickening with peripherally distributed lucencies within the cecum and ascending colon suspicious for a nonspecific colitis with possible pneumatosis. Alternatively, this could be normal intraluminal gas with wall thickening secondary to fluid overload. Possible ischemic bowel. Surgery on board recommended to transfer to tertiary center if require surgical intervention Case discussed with supervisor inspection room and recommended to transfer as well to tertiary care Case discussed with [facility] [employer] Dr. Alicea and agreed to accept the patient on transfer Will transfer to [facility] for further eval (3) Acute blood loss anemia: Possible related to GI bleed Possible due to NSAIDS Hgb of 7.8 on admission (baseline 9-10). Received 2 units PRBC Gastro on board Keep NPO for now Continue Octreotide bolus and gtt; Ceftriaxone IV for possible SBP prophylaxis in setting of GI bleeding (suspect possible cirrhosis given low plts and elevated INR in pt w fatty liver) Was planning to get an EGD, but since patient is unstable on pressors, EGD was postponed. GI will re-evaluate for EGD once stable Hgb 9.1 today Continue monitor CBC (4) Lactic acid acidosis: Possible relating to GI bleed vs Septic shock vs ischemic bowel lactic acid on admission 7.3 Normalized to 1.3 after IV fluid hydration Urine cx positive for gram negative bacilli CT abd/pelvis showed possible ischemic bowel Continue IV abx with cefepime and Vanco Continue IV fluid Blood cx pending (5) Elevated troponin: Mostly related to demand ischemia due to hypovolemic shock Troponin peaked to 0.3, now trending down EKG showed no ischemic changes ECHO showed no wall motion abnormality with EF 60-65 % Denies any chest pain (6) Alcohol use disorder: History of recent use- 15 beers daily with occasional liquor. Last drink 2 days ago Serum etoh <3 today. Alcohol withdrawal protocol ordered No sign of alcohol withdrawal Gabapentin was discontinue since pt is drowsy (7) Burst fracture of thoracic vertebra: Possible related to fall CT thoracic showed an acute to subacute T11 burst fracture demonstrating up to 50% loss of height centrally. No associated retropulsion. CT cervical spine showed mild superior endplate C7 compression deformity, likely old. No definite acute fractures or traumatic subluxations identified CT Lumbar spine showed no fractures or subluxations are visualized. Ortho consult pending (8) Hematuria, gross: Possible related to NSAID PSA normal urology on board Improved (9) Tobacco use disorder: Smokes 2-4 packs daily/ Cessation counseling ordered (10) Bipolar disorder: Not taking any medication currently DVT Ppx: SCDs for now due to hematuria/GI bleeding Code status: Full Code PCP: Cindy Dispo: Will transfer to [facility] Total Time Total Time Spent Total Time Spent (In Minutes): 60 minutes Total Time Includes: Examination of the Patient, Discharge Planning, Medication Reconciliation, Communication With Other Providers and Other Discharge Plan Discharge Items Patient Disposition: Transfer Acute Care Hospital Reason For Visit: ABD PAIN Discharge Diagnosis: (1) Hypovolemic shock: (2) GI bleed: (3) Acute blood loss anemia: (4) Lactic acid acidosis: (5) Elevated troponin: (6) Alcohol use disorder (7) Burst fracture of thoracic vertebra (8) Hematuria, gross: (9) Tobacco use disorder: (10) Bipolar disorder: Activity: As commented below Non-emergency contact: Primary Care Provider Call non-emergency contact if: you have any medication questions Follow-up/Referrals: Michelet White MD [Primary Care Provider] - Diet: Nothing by Mouth Addtl Attending Provider Instructions: Transfer with [facility] Accepting [employer] Dr. Alicea Continue pressors, IV Octreotide drip and Pantoprazole drip Consult surgery Monitor hemoglobin Pending Studies at Discharge: Yes Studies:: Final Blood culture result Stand-Alone Forms: My [facility] Skilled Items Patient informed of condition?: Yes DNR: Yes Discharge Level of Care: Other Communicable Disease: No Discharge Prognosis: Other Lines: US Guided Peripheral IV Urinary Catheter: Yes Medications and DC Order Prescriptions: Discontinued ibuprofen [Advil] 200 mg Tablet 400 mg PO Q6H PRN (Reason: Pain) RF: 0 Excedrin Extra Strength 250-250-65 mg Tablet 1 tab PO Q6H PRN (Reason: Headache) RF: 0 Discharge Orders: Discharge Order (Routine); Ordered 11/08/19 Ordered By: Fredi Murrieta Admission Data Admit Date/Time: 11/07/19 09:52 Attending Provider: Fredi Murrieta Admit Provider: Fredi Murrieta Primary Care Provider: Michelet White Other Providers: Daphne Pearson ; Cuco Davalos ; Fredi Murrieta ; Sunny Agarwal ; Jabier Harris ; Osmar Muniz ; Alexx Gutierrez ; Sebastian Bradford Jr ; Benny Salinas ; Darshan Dover ; Lesly Altman ; Addison Madrigal ; Juan Luis Saeed ; Dheeraj Camacho ; Iraj Osorio ; Latonia Ward ; Eladio Landry ; Temitope Redman ; Aj Diaz ; Arsenio Darling ; Alberto Tapia ; Arsenio Castellano Andrew J. ; Alberto Conner ; Prashant Diane ; Soto Abdi ; Elliot New ; Remy Sanches ; Paras Durand ; Temitope Gómez ; Lane Gaona ; Aly Lancaster ; Jailene Avalos ; Don Alfred ; Jennifer Gonzalez E
[2019-11-08 22:49] LABS: iSTAT Allen Test Pass; iSTAT Arterial Blood Gas HCO3 16 meg/L (19-24); iSTAT Arterial Blood Gas pCO2 27 mmHg (35-46); iSTAT Arterial Blood Gas pH 7.37 (7.35-7.45); iSTAT Arterial Blood Gas pO2 54 mmHg (80-95); iSTAT Carbon Dioxide 17 mmol/L (24-31); iSTAT Site R Radial
--- NOTE | 2019-11-08 23:17 | Communication Note ---
Date of Service: November 08, 2019 Prior to transfer patient had become increasingly hypoxic and and more lethargic. There was concern by the transfer team that patient would decompensate in route and that it would be safer to intubate the patient in the hospital. ABG was collected showed patient had PO2 of 54 on 6 L nasal cannula. Decision was made to intubate and stabilize the patient prior to transfer. Patient was then intubated by the transfer team without issue. Tube was confirmed with chest x-ray and an advanced 2 cm following imaging. Patient was placed on AC VC 24/450/8/100 percent and ABG was collected approximately 15 minutes post intubation. No ventilator changes were needed and patient was transferred out via [employer] helicopter. Coding Level of Care Code None
[2019-11-08 23:22] LABS: iSTAT Allen Test Pass; iSTAT Arterial Blood Gas HCO3 17 meg/L (19-24); iSTAT Arterial Blood Gas pCO2 28 mmHg (35-46); iSTAT Arterial Blood Gas pH 7.39 (7.35-7.45); iSTAT Arterial Blood Gas pO2 118 mmHg (80-95); iSTAT Carbon Dioxide 18 mmol/L (24-31); iSTAT Site R Radial
--- NOTE | 2019-11-09 08:24 | XRay Report ---
XR chest 1V portable HISTORY: Respiratory failure. COMPARISON: Chest 11/07/2019. FINDINGS: Endotracheal tube terminates 6.8 cm from the yvonne. The heart is top normal in size. No pn eumothorax. Small bilateral pleural effusions. Interval development of consolidation throughout the m ajority of the left lung. There are also patchy airspace consolidation within the right lung and inte rstitial thickening. IMPRESSION: 1. Endotracheal tube terminates 6.8 cm from the yvonne. This could be advanced by approximately 3 cm. 2. Bilateral airspace opacities, left greater than right. There are also small bilateral pleural effu sions. This could represent asymmetric pulmonary edema or a pneumonia. ACT 112: Negative or not required by law. Electronically signed by: Leandro Mccormick M.D. 11/09/2019 8:23 AM
[2019-11-09] MEDS ORDERED: GABAPENTIN 600 MG TAB PO SCH (12:00)
[2019-11-11] MEDS ORDERED: GABAPENTIN 600 MG TAB PO SCH
== END 2019-11-08 23:12 | disposition short-term general hospital (02) | DRG 871 ==
LOC: ED 08:41 → 1E 09:52